=== PATIENT | male | born 1960 | race Caucasian/White ===

== ENCOUNTER 2024-07-22 03:08 | Inpatient (IN) | payer MEDICARE, MEDICAID ==
[~2024-07-22] VITALS: Ht 175.3 cm; Wt 51.9 kg
[2024-07-22] VITALS (10 sets, daily range): BP systolic 115–138; BP diastolic 83–96; PULSE 88–110; RESP 15–24; TEMP 97–97.9; O2SAT 95–100
[~2024-07-22 03:08] MED LIST: ASPI-611 PO; CARV6.253 PO; CLOP-32 PO; FURO20TA4 PO; LISI10TA27 PO; NICO-631 TD; SPIR25TA PO
[2024-07-22] MEDS: methylPREDNISolone sod succ 125mg/2ml vial IV ONE (03:41)
[2024-07-22] MEDS: ipratropium/albuterol 3ml nebule NEB ONE ×2 (03:48→07:11)
[2024-07-22 03:55] LABS: BASOPHILS % (AUTO) 0.5 % (0-1); EOSINOPHILS # (AUTO) 0.1 X10'3 (0-0.9); EOSINOPHILS % (AUTO) 1.6 % (0-6); HEMATOCRIT 37.5 % (42.0-52.0); HEMOGLOBIN 12.3 g/dl (14.0-17.9); LYMPHOCYTES # (AUTO) 0.8 X10'3 (1.1-4.8); LYMPHOCYTES % (AUTO) 11.3 % (21-51); MEAN CORPUSCULAR HEMOGLOBIN 29.7 PG (27.0-31.0); MEAN CORPUSCULAR HGB CONC 32.8 g/dL (33.0-36.5); MEAN CORPUSCULAR VOLUME 90.5 FL (78-98); MEAN PLATELET VOLUME 8.2 FL (7.4-10.4); MONOCYTES # (AUTO) 0.5 X10'3 (0-0.9); MONOCYTES % (AUTO) 6.5 % (2-12); NEUTROPHILS # (AUTO) 5.6 X10'3 (1.8-7.7); NEUTROPHILS % (AUTO) 80.1 % (42-75); PLATELET COUNT 151 X10'3 (140-440); RED BLOOD COUNT 4.15 X10'6 (4.70-6.10); RED CELL DISTRIBUTION WIDTH 16.7 % (11.5-14.5)
[2024-07-22 04:08] LABS: ALBUMIN 3.4 G/DL (3.4-5.0); ANION GAP 10 (8-16); BLOOD UREA NITROGEN 22 MG/DL (7-18); BUN/CREATININE RATIO 22.2 (10.0-20.0); CALCIUM 8.7 MG/DL (8.5-10.1); CHLORIDE 108 MMOL/L (99-107); CREATININE 0.99 MG/DL (0.60-1.10); GLUCOSE 101 MG/DL (70-104); POTASSIUM 4.3 MMOL/L (3.5-5.1); SODIUM 143 MMOL/L (135-145); eCRCL 56 ML/MIN; eGFR 76 ML/MIN
[2024-07-22] MEDS: normal saline 1000ML IV soln IVB ONE (06:02)
[2024-07-22] MEDS ORDERED: acetaminophen 325mg tablet PO PRN (07:45)
[2024-07-22] MEDS ORDERED: magnesium hydroxide 30ml (MOM) UD suspension PO PRN (07:45)
[2024-07-22] MEDS ORDERED: potassium Cl 40MEQ/1/2NS 520ml 520 ML IV PRN ×2 (07:45→09:15)
[2024-07-22] MEDS ORDERED: magnesium sulf-water 2g/50mL 50 ML IV PRN ×2 (07:45→09:15)
[2024-07-22] MEDS ORDERED: ondansetron/PF 4mg/2ml inj IV PRN (07:45)
[2024-07-22] MEDS ORDERED: potassium Cl 20 mEq SR tablet PO PRN ×4 (07:45→09:15)
[2024-07-22] MEDS ORDERED: magnesium sulf-water 4G/100mL 100 ML IV PRN ×2 (07:45→09:15)
[2024-07-22] MEDS ORDERED: mag hydrox/Alum hydrox/simeth 30ml oral suspension PO PRN (07:45)
[2024-07-22] MEDS: enoxaparin 40mg/0.4ml syringe SUBCUT SCH (08:00)
[2024-07-22] MEDS: K and/or MAG REPLACEMENT MC SCH ×2 (08:00→20:00)
[2024-07-22] MEDS: CefTRIAXone 2gm/D5W 50ml BAG 50 ML IV ONE (08:06)
[2024-07-22] MEDS: azithromycin/NS 500mg/250ml 250 ML IV SCH (08:52)
[2024-07-22] MEDS: docusate sod 100mg capsule PO SCH (09:01)
[2024-07-22 09:03] LABS: MAGNESIUM 1.4 MG/DL (1.5-2.4); PHOSPHORUS 1.8 MG/DL (2.3-4.5); THYROID STIMULATING HORMONE 1.49 ulU/ml (0.34-4.50)
[2024-07-22] MEDS: furosemide 40mg/4ml inj IV SCH (09:03)
[2024-07-22 09:05] LABS: HEMOGLOBIN A1C 6.3 % (4.5-6.2)
[2024-07-22] MEDS ORDERED: sodium phosphate inj. 15 MMOL in dextrose 5%-water 250 ML IV PRN (09:15)
[2024-07-22] MEDS ORDERED: Neutra Phos packet PO PRN (09:15)
[2024-07-22] MEDS ORDERED: sodium phosphate inj. 30 MMOL in dextrose 5%-water 250 ML IV PRN (09:15)
[2024-07-22] MEDS: magnesium Cl slow-release 64mg tablet PO PRN (09:17)
[2024-07-22 14:34] LABS: BILIRUBIN,URINE NEGATIVE (Neg); CLARITY,URINE CLEAR (Clear); COLOR,URINE STRAW (Yellow); GLUCOSE, URINE 100 mg/dl (Neg); KETONES,URINE NEGATIVE (Neg); LEUKOCYTE ESTERASE ,URINE NEGATIVE (Neg); NITRITES, URINE NEGATIVE (Neg); OCCULT BLOOD,URINE NEGATIVE (Neg); PH,URINE 5.5 (4.8-8.0); PROTEIN,URINE NEGATIVE (Neg); UROBILINOGEN,URINE 0.2 E.U/dL (0.2-1.0)
[2024-07-22 14:37] LABS: UA COLLECTION TYPE CLN CATCH MIDSTREAM
[2024-07-22 14:41] LABS: URINE AMPHETAMINE SCREEN NEGATIVE (Neg); URINE BARBITUATE SCREEN NEGATIVE (Neg); URINE BENZODIAZEPINES SCREEN NEGATIVE (Neg); URINE CANNABINOID SCREEN NEGATIVE (Neg); URINE COCAINE SCREEN NEGATIVE (Neg); URINE METHADONE SCREEN NEGATIVE (Neg); URINE OPIATE SCREEN NEGATIVE (Neg); URINE PHENCYCLIDINE SCREEN NEGATIVE (Neg)
[2024-07-22] MEDS: normal saline 1000ml 1,000 ML IV ONE (16:24)
[2024-07-22] MEDS: ringers solution, lacted 1,000 ML IV ONE ×2 (16:54→18:45)
[2024-07-22] MEDS: carVEDilol 3.125mg tablet PO SCH (20:21)
[2024-07-23] VITALS (22 sets, daily range): BP systolic 113–169; BP diastolic 78–116; PULSE 94–135; RESP 16–30; TEMP 98–98.8; O2SAT 88–100
[2024-07-23] MEDS: guaiFENesin ER 600mg tablet PO ONE (01:42)
[2024-07-23] MEDS: albuterol 2.5 MG/3 ML nebule NEB PRN (04:29)
[2024-07-23 06:42] LABS: ABG BASE EXCESS -3.1 mmol/L (-2.0-3.0); ABG OXYGEN SATURATION 97.5 % (94.0-98.0); ABG PH (T) 7.341 (7.350-7.450); ABG PO2 (T) 98.3 mmHg (83.0-108.0); ALLEN'S TEST POSITIVE; FCOHb 0.7 % (0.5-1.5); FHHb 2.5 % (0.0-5.0); FLOW 6 L/min; FMetHb 0.3 % (0.0-1.5); FO2Hb 96.5 % (94.0-98.0); PATIENT TEMPERATURE 35.9
[2024-07-23] MEDS: ipratropium/albuterol 3ml nebule NEB PRN (06:44)
[2024-07-23] MEDS: furosemide 40mg/4ml inj IV ONE (07:02)
[2024-07-23 07:03] LABS: BASOPHILS # (AUTO) 0.1 X10'3 (0-0.2); BASOPHILS % (AUTO) 0.5 % (0-1); EOSINOPHILS # (AUTO) 0.1 X10'3 (0-0.9); EOSINOPHILS % (AUTO) 0.6 % (0-6); HEMATOCRIT 38.2 % (42.0-52.0); HEMOGLOBIN 12.2 g/dl (14.0-17.9); LYMPHOCYTES # (AUTO) 1.2 X10'3 (1.1-4.8); LYMPHOCYTES % (AUTO) 9.9 % (21-51); MEAN CORPUSCULAR HEMOGLOBIN 29.3 PG (27.0-31.0); MEAN CORPUSCULAR HGB CONC 31.9 g/dL (33.0-36.5); MEAN PLATELET VOLUME 8.6 FL (7.4-10.4); MONOCYTES # (AUTO) 0.5 X10'3 (0-0.9); MONOCYTES % (AUTO) 3.9 % (2-12); NEUTROPHILS # (AUTO) 10.4 X10'3 (1.8-7.7); NEUTROPHILS % (AUTO) 85.1 % (42-75); PLATELET COUNT 188 X10'3 (140-440); RED BLOOD COUNT 4.15 X10'6 (4.70-6.10); RED CELL DISTRIBUTION WIDTH 16.9 % (11.5-14.5); WHITE BLOOD COUNT 12.3 X10'3 (4.5-11.0)
[2024-07-23] MEDS: metoprolol tartrate 1mg/ml inj IV ONE (07:03)
[2024-07-23 07:07] LABS: ALANINE AMINOTRANSFERASE 100 U/L (12-78); ALBUMIN 3.6 G/DL (3.4-5.0); ALBUMIN/GLOBULIN RATIO 1.1 (1.1-1.5); ALKALINE PHOSPHATASE 83 IU/L (46-116); ANION GAP 14 (8-16); ASPARTATE AMINO TRANSFERASE 110 U/L (10-37); BILIRUBIN,TOTAL 0.8 MG/DL (0.1-1.0); BLOOD UREA NITROGEN 28 MG/DL (7-18); BUN/CREATININE RATIO 25.2 (10.0-20.0); CALCIUM 8.6 MG/DL (8.5-10.1); CHLORIDE 106 MMOL/L (99-107); CHOLESTEROL 133 MG/DL (0-200); CREATININE 1.11 MG/DL (0.60-1.10); GLUCOSE 138 MG/DL (70-104); HDL CHOLESTEROL 66 MG/DL (35-60); LDL CHOLESTEROL 51 MG/DL (50-100); MAGNESIUM 1.4 MG/DL (1.5-2.4); PHOSPHORUS 3.4 MG/DL (2.3-4.5); POTASSIUM 4.4 MMOL/L (3.5-5.1); SODIUM 144 MMOL/L (135-145); TOTAL CARBON DIOXIDE 24.4 MMOL/L (24-32); TOTAL PROTEIN 6.8 G/DL (6.4-8.2); TRIGLYCERIDES 55 MG/DL (20-135); eCRCL 50 ML/MIN; eGFR 66 ML/MIN
[2024-07-23 07:56] LABS: APTT 24 SECONDS (22-32); INR 1.1 INR; PROTHROMBIN TIME 11.5 SECONDS (9.0-12.0)
[2024-07-23] MEDS: carvedilol 6.25mg tablet PO SCH (08:22)
[2024-07-23] MEDS: magnesium Cl slow-release 64mg tablet PO PRN (10:19)
[2024-07-23] MEDS: furosemide 40mg/4ml inj IV SCH ×2 (10:55→21:28)
[2024-07-23] MEDS: LidoCAINE 2% Topical Jelly 11mL syringe (UROJET) TOP ONE (11:12)
[2024-07-23 12:09] LABS: ABG BASE EXCESS 0.7 mmol/L (-2.0-3.0); ABG HCO3 23.7 mmol/L (21.0-28.0); ABG OXYGEN SATURATION 98.4 % (94.0-98.0); ABG PCO2 (T) 33.4 mmHg (35.0-48.0); ABG PH (T) 7.469 (7.350-7.450); FCOHb 0.2 % (0.5-1.5); FHHb 1.6 % (0.0-5.0); FMetHb 0.3 % (0.0-1.5); FO2Hb 97.9 % (94.0-98.0); MODE MASK - BIPAP; PATIENT TEMPERATURE 37.1; RESPIRATORY RATE 8 b/min; TOTAL HEMOGLOBIN 12.9 G/dl (13.5-17.5)
[2024-07-23] MEDS ORDERED: aspirin 81mg, enteric-coated 1 TAB TABLET.DR PO ONE (13:00)
[2024-07-23] MEDS: aspirin 81mg, enteric-coated 1 TAB TABLET.DR PO ONE (13:40)
[2024-07-23] MEDS: EMPAGLIFLOZIN 10 MG TABLET PO SCH (13:40)
[2024-07-23] MEDS: atorvastatin 20mg tablet PO SCH (17:21)
[2024-07-23] MEDS: spironolactone 25 MG tablet PO SCH (17:22)
[2024-07-23] MEDS ORDERED: lisinopril 2.5mg tablet PO SCH (19:00)
[2024-07-23] MEDS: lisinopril 5mg tablet PO SCH (21:27)
[2024-07-23] MEDS: tamsulosin 0.4mg capsule PO SCH (21:27)
[2024-07-23] MEDS: CefTRIAXone/D5W-Rocephin 1gm 50 ML IV SCH (23:25)
[2024-07-23] MEDS: VANCOmycin 1250MG/NS 250ml Bag 250 ML IV ONE (23:49)
[2024-07-24] VITALS (13 sets, daily range): BP systolic 80–124; BP diastolic 49–86; PULSE 62–102; RESP 15–20; TEMP 97.3–99; O2SAT 92–99
[2024-07-24 06:22] LABS: EOSINOPHILS # (AUTO) 0.1 X10'3 (0-0.9); EOSINOPHILS % (AUTO) 1.4 % (0-6); HEMOGLOBIN 12.1 g/dl (14.0-17.9); LYMPHOCYTES # (AUTO) 0.7 X10'3 (1.1-4.8); MONOCYTES # (AUTO) 0.4 X10'3 (0-0.9); WHITE BLOOD COUNT 5.7 X10'3 (4.5-11.0)
[2024-07-24 06:27] LABS: BASOPHILS % (AUTO) 0.6 % (0-1); HEMATOCRIT 36.9 % (42.0-52.0); LYMPHOCYTES % (AUTO) 12.1 % (21-51); MEAN CORPUSCULAR HEMOGLOBIN 29.6 PG (27.0-31.0); MEAN CORPUSCULAR HGB CONC 32.9 g/dL (33.0-36.5); MEAN CORPUSCULAR VOLUME 89.9 FL (78-98); MEAN PLATELET VOLUME 8.7 FL (7.4-10.4); MONOCYTES % (AUTO) 7.4 % (2-12); NEUTROPHILS # (AUTO) 4.4 X10'3 (1.8-7.7); NEUTROPHILS % (AUTO) 78.5 % (42-75); PLATELET COUNT 135 X10'3 (140-440); RED BLOOD COUNT 4.11 X10'6 (4.70-6.10); RED CELL DISTRIBUTION WIDTH 17.1 % (11.5-14.5)
[2024-07-24 06:30] LABS: APTT 28 SECONDS (22-32); INR 1.1 INR; PROTHROMBIN TIME 11.8 SECONDS (9.0-12.0)
[2024-07-24 06:31] LABS: ALANINE AMINOTRANSFERASE 58 U/L (12-78); ALBUMIN 3.2 G/DL (3.4-5.0); ALKALINE PHOSPHATASE 68 IU/L (46-116); ANION GAP 6 (8-16); ASPARTATE AMINO TRANSFERASE 44 U/L (10-37); BILIRUBIN,TOTAL 0.8 MG/DL (0.1-1.0); BLOOD UREA NITROGEN 35 MG/DL (7-18); BUN/CREATININE RATIO 30.4 (10.0-20.0); CALCIUM 7.8 MG/DL (8.5-10.1); CHLORIDE 102 MMOL/L (99-107); CREATININE 1.15 MG/DL (0.60-1.10); GLUCOSE 88 MG/DL (70-104); MAGNESIUM 1.6 MG/DL (1.5-2.4); PHOSPHORUS 3.5 MG/DL (2.3-4.5); POTASSIUM 3.7 MMOL/L (3.5-5.1); SODIUM 142 MMOL/L (135-145); TOTAL CARBON DIOXIDE 33.7 MMOL/L (24-32); TOTAL PROTEIN 6.3 G/DL (6.4-8.2); eCRCL 47 ML/MIN; eGFR 64 ML/MIN
[2024-07-24] MEDS: LORazepam 0.5 MG tablet PO ONE (20:04)
[2024-07-24] MEDS: normal saline 1000ml 1,000 ML IV SCH (22:00)
[2024-07-24] MEDS: vancomycin/NS 1 GM ADD-VANTAGE 250 ML IV SCH (23:28)
[2024-07-25] VITALS (12 sets, daily range): BP systolic 79–108; BP diastolic 54–75; PULSE 67–98; RESP 16–20; TEMP 97.7–98.4; O2SAT 91–98
[2024-07-25 06:02] LABS: BASOPHILS # (AUTO) 0.1 X10'3 (0-0.2); BASOPHILS % (AUTO) 1.9 % (0-1); EOSINOPHILS # (AUTO) 0.2 X10'3 (0-0.9); EOSINOPHILS % (AUTO) 4.1 % (0-6); HEMATOCRIT 35.2 % (42.0-52.0); HEMOGLOBIN 11.6 g/dl (14.0-17.9); LYMPHOCYTES # (AUTO) 0.8 X10'3 (1.1-4.8); LYMPHOCYTES % (AUTO) 19.6 % (21-51); MEAN CORPUSCULAR HEMOGLOBIN 29.4 PG (27.0-31.0); MEAN CORPUSCULAR VOLUME 89.1 FL (78-98); MEAN PLATELET VOLUME 8.4 FL (7.4-10.4); MONOCYTES # (AUTO) 0.5 X10'3 (0-0.9); NEUTROPHILS # (AUTO) 2.7 X10'3 (1.8-7.7); NEUTROPHILS % (AUTO) 63.4 % (42-75); PLATELET COUNT 165 X10'3 (140-440); RED BLOOD COUNT 3.95 X10'6 (4.70-6.10); RED CELL DISTRIBUTION WIDTH 16.3 % (11.5-14.5); WHITE BLOOD COUNT 4.3 X10'3 (4.5-11.0)
[2024-07-25 06:05] LABS: APTT 26 SECONDS (22-32); INR 1.1 INR; PROTHROMBIN TIME 11.2 SECONDS (9.0-12.0)
[2024-07-25 06:18] LABS: ALANINE AMINOTRANSFERASE 43 U/L (12-78); ALBUMIN 2.9 G/DL (3.4-5.0); ALBUMIN/GLOBULIN RATIO 0.9 (1.1-1.5); ALKALINE PHOSPHATASE 60 IU/L (46-116); ANION GAP 5 (8-16); ASPARTATE AMINO TRANSFERASE 27 U/L (10-37); BILIRUBIN,TOTAL 0.9 MG/DL (0.1-1.0); BLOOD UREA NITROGEN 37 MG/DL (7-18); BUN/CREATININE RATIO 33.6 (10.0-20.0); CALCIUM 8.3 MG/DL (8.5-10.1); CHLORIDE 101 MMOL/L (99-107); GLUCOSE 96 MG/DL (70-104); MAGNESIUM 1.6 MG/DL (1.5-2.4); PHOSPHORUS 3.6 MG/DL (2.3-4.5); POTASSIUM 3.7 MMOL/L (3.5-5.1); SODIUM 138 MMOL/L (135-145); TOTAL CARBON DIOXIDE 32.5 MMOL/L (24-32); eCRCL 49 ML/MIN; eGFR 67 ML/MIN
[2024-07-25] MEDS: LORazepam 0.5 MG tablet PO ONE (17:29)
[2024-07-26 02:00] VITALS: BP 111/73; PULSE 74; RESP 17; TEMP 98.3; O2SAT 97
[2024-07-26 06:55] LABS: BASOPHILS # (AUTO) 0.1 X10'3 (0-0.2); EOSINOPHILS # (AUTO) 0.2 X10'3 (0-0.9); EOSINOPHILS % (AUTO) 5.1 % (0-6); HEMATOCRIT 34.9 % (42.0-52.0); HEMOGLOBIN 11.5 g/dl (14.0-17.9); LYMPHOCYTES # (AUTO) 0.9 X10'3 (1.1-4.8); LYMPHOCYTES % (AUTO) 21.1 % (21-51); MEAN CORPUSCULAR HGB CONC 32.9 g/dL (33.0-36.5); MEAN CORPUSCULAR VOLUME 88.3 FL (78-98); MEAN PLATELET VOLUME 8.5 FL (7.4-10.4); MONOCYTES # (AUTO) 0.5 X10'3 (0-0.9); MONOCYTES % (AUTO) 11.4 % (2-12); NEUTROPHILS # (AUTO) 2.6 X10'3 (1.8-7.7); NEUTROPHILS % (AUTO) 60.4 % (42-75); PLATELET COUNT 184 X10'3 (140-440); RED BLOOD COUNT 3.95 X10'6 (4.70-6.10); WHITE BLOOD COUNT 4.2 X10'3 (4.5-11.0)
[2024-07-26 07:00] VITALS: BP 118/69; PULSE 86; RESP 22; TEMP 97.4; O2SAT 94
[2024-07-26 07:04] LABS: INR 1.1 INR; PROTHROMBIN TIME 11.2 SECONDS (9.0-12.0)
[2024-07-26 07:19] LABS: ALANINE AMINOTRANSFERASE 33 U/L (12-78); ALBUMIN 2.8 G/DL (3.4-5.0); ALBUMIN/GLOBULIN RATIO 0.9 (1.1-1.5); ALKALINE PHOSPHATASE 60 IU/L (46-116); ANION GAP 5 (8-16); ASPARTATE AMINO TRANSFERASE 23 U/L (10-37); BILIRUBIN,TOTAL 0.7 MG/DL (0.1-1.0); BLOOD UREA NITROGEN 39 MG/DL (7-18); BUN/CREATININE RATIO 39.4 (10.0-20.0); CALCIUM 8.3 MG/DL (8.5-10.1); CHLORIDE 101 MMOL/L (99-107); CREATININE 0.99 MG/DL (0.60-1.10); GLUCOSE 89 MG/DL (70-104); MAGNESIUM 1.6 MG/DL (1.5-2.4); PHOSPHORUS 3.2 MG/DL (2.3-4.5); POTASSIUM 3.9 MMOL/L (3.5-5.1); SODIUM 136 MMOL/L (135-145); TOTAL CARBON DIOXIDE 29.8 MMOL/L (24-32); TOTAL PROTEIN 5.9 G/DL (6.4-8.2); eCRCL 55 ML/MIN; eGFR 76 ML/MIN
[2024-07-26] MEDS ORDERED: ATOR20TA66 PO (07:49)
[2024-07-26] MEDS ORDERED: EMPA10TA PO (07:49)
[2024-07-26] MEDS ORDERED: SPIR25TA5 PO (07:49)
[2024-07-26] MEDS ORDERED: SACU1TAB PO (07:49)
[2024-07-26] MEDS ORDERED: LISI10TA27 PO (07:49)
[2024-07-26] MEDS ORDERED: ATOR10TA70 PO (07:49)
[2024-07-26] MEDS ORDERED: FURO20TA4 PO (07:49)
[2024-07-26 08:00] VITALS: BP_SYST 105; BP_SYST 110; BP_SYST 118; BP_DIAS 65; BP_DIAS 69; BP_DIAS 70; PULSE 80; PULSE 83; PULSE 86; RESP 18; O2SAT 93
[2024-07-26 09:33] VITALS: PULSE 72; RESP 20; O2SAT 94
[2024-07-26 11:00] VITALS: BP 92/54; PULSE 75; RESP 20; TEMP 98.1; O2SAT 97
[2024-07-26] MEDS ORDERED: VANCOMYCIN LEVEL IV ONE (23:30)
== END 2024-07-26 16:21 | disposition home or self-care (01) | DRG 291 ==
LOC: ER 03:09 → EDBD 03:09 → ED HOLD 08:07 → ORTHO 4S 12:30 → PCU 3S 07-23 20:17
PROVIDERS: ADMIT Internal Medicine; ATTEND Internal Medicine
PROC: 5A09357 Assistance with Respiratory Ventilation, Less than 24 Consecutive Hours, Continuous Positive Airway Pressure (ICD-10-PCS; 2024-07-23)
PROC: 4B02XTZ Measurement of Cardiac Defibrillator, External Approach (ICD-10-PCS; principal; 2024-07-25)
DX: I11.0 Hypertensive heart disease with heart failure (principal); I50.23 Acute on chronic systolic (congestive) heart failure; J96.01 Acute respiratory failure with hypoxia; J44.1 Chronic obstructive pulmonary disease with (acute) exacerbation; N17.9 Acute kidney failure, unspecified; Z20.822 Contact with and (suspected) exposure to COVID-19; Z66 Do not resuscitate; I95.9 Hypotension, unspecified; R33.8 Other retention of urine; E83.39 Other disorders of phosphorus metabolism; N40.1 Benign prostatic hyperplasia with lower urinary tract symptoms; E83.42 Hypomagnesemia; F17.210 Nicotine dependence, cigarettes, uncomplicated; Z88.5 Allergy status to narcotic agent; Z95.810 Presence of automatic (implantable) cardiac defibrillator; Z88.0 Allergy status to penicillin
CPT/HCPCS: 36415; 36600; 71045; 80048; 80053; 80061; 80305; 81003; 82803; 83036; 83605; 83735; 83880; 84100; 84145; 84443; 84484; 85018; 85025; 85610; 85730; 87040; 87077; 87081; 87186; 87811; 93005; 93306; 94640; 94660; 94760; 96365; 97161; 97530; 97535; 99291; A4314; A4340; A4615; A4620; A6590; G0378; J0456; J0696; J1650; J1940; J2919; J3370; J3490; J7030; J7040; J7120

== ENCOUNTER 2025-03-23 02:46 | Inpatient (IN) | payer MEDICARE, MEDICAID ==
[~2025-03-23] VITALS: Ht 175.3 cm; Wt 57.0 kg
[2025-03-23] VITALS (9 sets, daily range): BP systolic 115–117; BP diastolic 68–79; PULSE 108–116; RESP 18–24; TEMP 97.6–97.7; O2SAT 93–100
[~2025-03-23 02:46] MED LIST changes: +ALB0.5UD IH; -ASPI-611 PO; +ATOR20TA66 PO; +BUDE10.22 INH; +CYCL-1 PO; +EMPA10TA PO; -LISI10TA27 PO; +LISI2.5T14 PO; -NICO-631 TD; +PANT-47 PO; +PRED5TAB PO
--- NOTE | 2025-03-23 03:46 | Physician Documentation ---
History of Present Illness ~ Chief Complaint: Shortness of Breath Stated Complaint: SOB Time Seen by MD: 03:46 Mode of Arrival: EMS HPI 64-year-old male history of HFrEF EF 10% presenting for shortness of breath. Medication Reconciliation Allergies: Coded Allergies: Penicillins (Verified Allergy, Unknown, PATIENT CANNOT REMEMBER, IT WAS LONG AGO., 03/23/25) codeine (Verified Allergy, Unknown, 03/23/25) Scheduled Atorvastatin Calcium (Atorvastatin Calcium), 1 TAB PO DAILY, (Reported) Budesonide/Formoterol Fumarate (Symbicort 80-4.5 Mcg Inhaler), 2 PUFFS INH Q12H Carvedilol (Carvedilol), 6.25 MG PO BID Clopidogrel Bisulfate (Plavix), 75 MG PO DAILY Empagliflozin (Jardiance), 1 TAB PO DAILY Furosemide (Furosemide), 1 TAB PO DAILY Lisinopril (Lisinopril), 1 TAB PO DAILY Pantoprazole Sodium (PROTONIX tablet), 1 TAB PO DAILY Prednisone* (Prednisone*), 1 TAB PO DAILY, (Reported) Prednisone* (Prednisone*), 3 TAB PO DAILY Spironolactone (Aldactone), 25 MG PO DAILY@0830 Scheduled PRN Albuterol Sulfate Nebs* (Proventil Nebs*), 2.5 MG IH Q4H PRN for SOB or wheezing, (Reported) Cyclobenzaprine* (Cyclobenzaprine*), 10 MG PO Q12H PRN for muscle spasms Past Medical History Past Medical History: Coronary Artery Disease, Myocardial Infarction, COPD Past Surgical History: noncontributory Lives In: Home Review of Systems All Other Systems at this time: Reviewed and Negative Constitutional: Reports: fever Physical Exam Vital Signs: Temperature: 97.1, Source: Axillary, Heart Rate: 105, Respiratory Rate: 25, BP: 124/72, Pulse Oximetry: 98, Weight: 57.000 Oxygen Flow Rate: 3.0 Physical Exam Chronically ill-appearing Quickly bibasilar crackles you know abdomen soft nontender No lower extremity no edema Progress Progress Note Reassess patient he is feeling much better requesting food and discharge Results/Orders Results/Orders Orders - NABIL SCHOFIELD MD Chest,Single View (03/23/25 03:20) Monitor (03/23/25 04:10) Hs Troponin I W Calculations (03/23/25 06:10) Completed Orders - NABIL SCHOFIELD MD Chest,Single View (03/23/25 03:20) Cbc/Diff (03/23/25 04:10) PBNP (03/23/25 04:10) BMP (03/23/25 04:10) Hs Troponin I W Calculations (03/23/25 04:10) Ipratropium/Albuterol Nebule (Ipratrop/A (03/23/25 04:10) Electrocardiogram (03/23/25 ) Prednisone Tablet (Prednisone Tablet) (03/23/25 06:40) Medications Received in ER Medications (Trade) Dose Ordered Sig/Dot Route PRN Reason Start Time Stop Time Status Last Admin Dose Admin (ipratrop/ albuterol 0.5-3(2.5) MG/3ml nebule) 9 ml ONCE ONCE NEB 03/23/25 04:10 03/23/25 04:14 DC 03/23/25 04:40 9 ML Vital Signs 03/23/25 03/23/25 03/23/25 03/23/25 02:47 03:13 03:31 03:53 Temp 97.1 Pulse 105 111 Resp 20 25 28 B/P (MAP) 124/72 Pulse Ox 95 98 97 O2 Delivery Nasal Cannula* O2 Flow Rate 3.0 2 3.0 FiO2 28 03/23/25 03/23/25 03/23/25 03/23/25 04:07 04:41 04:52 05:31 Pulse 113 114 116 114 Resp 20 18 18 14 B/P (MAP) 109/78 (88) Pulse Ox 96 100 100 O2 Delivery Nasal Cannula* Nasal Cannula* O2 Flow Rate 3.0 2 2 FiO2 28 28 Laboratory Tests Test 03/23/25 05:12 White Blood Count 7.4 Red Blood Count 4.11 L Hemoglobin 9.9 L Hematocrit 31.3 L Mean Corpuscular Volume 76.0 L Mean Corpuscular Hemoglobin 24.2 L Mean Corpuscular Hemoglobin Concent 31.8 L Red Cell Distribution Width 19.0 H Platelet Count 270 Mean Platelet Volume 8.1 Neutrophils (%) (Auto) 70.9 Lymphocytes (%) (Auto) 11.0 L Monocytes (%) (Auto) 14.8 H Eosinophils (%) (Auto) 1.6 Basophils (%) (Auto) 1.7 H Neutrophils # (Auto) 5.2 Lymphocytes # (Auto) 0.8 L Monocytes # (Auto) 1.1 H Eosinophils # (Auto) 0.1 Basophils # (Auto) 0.1 CBC Comment Platelet Estimate Normal Red Blood Cell Morphology Perf Basophilic Stippling Anisocytosis 1+ Microcytosis 1+ Sodium Level 137 Potassium Level 4.9 Chloride Level 101 Carbon Dioxide Level 24.4 Anion Gap 12 Blood Urea Nitrogen 40 H Creatinine 1.71 H Estimated GFR/1.73 m2 40 BUN/Creatinine Ratio 23.4 H Glucose Level 122 H Calcium Level 8.9 Troponin I High Sensitivity 69 Pro-B-Type Natriuretic Peptide > 18800 H Albumin 3.2 L Chemistry Comments EKG/XRAY/CT/US/VASC/MRI EKG : Additional Comment EKG independently interpreted by myself time 2:53 a.m. indication shortness of breath ventricular paced rhythm rate 107 left axis deviation no concordant ST depression or elevation Chest X-Ray : Additional Comments X-ray independently interpreted shows left lower lobe infiltrate no pneumothorax no consolidation Medical Decision Making Additional info obtained from: old records Findings Reviewed discharge summary March 09, 2025 see HFrEF 10%, methamphetamine induced cardiomyopathy, COPD Entresto discontinued Additional Infomation COPD, pneumonia, asthma, CHF, Departure Disposition: ADMITTED INPATIENT Admitted to Inpatient Unit: to hospitalist Impression: Primary Impression: Acute on chronic systolic (congestive) heart failure Additional Impressions: Pneumonia Qualified Codes: J18.9 - Pneumonia, unspecified organism JUAN (acute kidney injury) Additional Impression Text 64-year-old male presenting for shortness of breath and cough found to have worsening of his systolic heart failure, JUAN and potential pneumonia Additional Instructions: Please follow up with your primary care physician. Return to the emergency depa rtment if your symptoms worsen Referrals: NO PRIMARY CARE PROVIDER (PCP) Prescriptions Prednisone* (Prednisone*) 20 Mg Tablet 3 TAB PO DAILY for 5 Days, #15 TAB Prov: NABIL SCHOFIELD MD 03/23/25 Signature Scribe Signature: ivon Attestation: NABIL Echols MD March 23, 2025 03:46
--- NOTE | 2025-03-23 03:53 | RADIOLOGY REPORT ---
CHEST RADIOGRAPH Indication: sob Technique: Single frontal view of the chest was obtained COMPARISON: DI CHEST,SINGLE VIEW on DOS: 03/09/25, DI CHEST,SINGLE VIEW on DOS: 07/23/24, DI CHEST,SINGL E VIEW on DOS: 07/22/24 FINDINGS: Lines and Tubes: Left anterior chest wall cardiac pacing device. Lungs: Left basilar airspace disease and/or pleural effusion not excluded. The remaining lung zones a re clear. No pneumothorax. Cardiomediastinal contours: Cardiomegaly. Bones: Unremarkable IMPRESSION: 1. Left basilar pulmonary airspace disease and/or pleural effusion not excluded. 2. Cardiomegaly.
[2025-03-23] MEDS: ipratropium/albuterol 3ml nebule NEB ONE (04:40)
[2025-03-23 05:31] LABS: BASOPHILS # (AUTO) 0.1 X10'3 (0-0.2); BASOPHILS % (AUTO) 1.7 % (0-1); EOSINOPHILS # (AUTO) 0.1 X10'3 (0-0.9); EOSINOPHILS % (AUTO) 1.6 % (0-6); HEMATOCRIT 31.3 % (42.0-52.0); HEMOGLOBIN 9.9 g/dl (14.0-17.9); LYMPHOCYTES # (AUTO) 0.8 X10'3 (1.1-4.8); MEAN CORPUSCULAR HEMOGLOBIN 24.2 PG (27.0-31.0); MEAN CORPUSCULAR HGB CONC 31.8 g/dL (33.0-36.5); MEAN PLATELET VOLUME 8.1 FL (7.4-10.4); MONOCYTES # (AUTO) 1.1 X10'3 (0-0.9); MONOCYTES % (AUTO) 14.8 % (2-12); NEUTROPHILS # (AUTO) 5.2 X10'3 (1.8-7.7); NEUTROPHILS % (AUTO) 70.9 % (42-75); PLATELET COUNT 270 X10'3 (140-440); RED BLOOD COUNT 4.11 X10'6 (4.70-6.10); WHITE BLOOD COUNT 7.4 X10'3 (4.5-11.0)
[2025-03-23 05:47] LABS: ALBUMIN 3.2 G/DL (3.4-5.0); ANION GAP 12 (8-16); BLOOD UREA NITROGEN 40 MG/DL (7-18); BUN/CREATININE RATIO 23.4 (10.0-20.0); CALCIUM 8.9 MG/DL (8.5-10.1); CHLORIDE 101 MMOL/L (99-107); CREATININE 1.71 MG/DL (0.60-1.10); GLUCOSE 122 MG/DL (70-104); POTASSIUM 4.9 MMOL/L (3.5-5.1); SODIUM 137 MMOL/L (135-145); TOTAL CARBON DIOXIDE 24.4 MMOL/L (24-32); eCRCL 34 ML/MIN; eGFR 40 ML/MIN
[2025-03-23 05:48] LABS: PRO BRAIN NATRIURETIC PEPTIDE > 30000 PG/ML (0-125)
[2025-03-23 05:50] LABS: ANISOCYTOSIS 1+; PLATELET ESTIMATE NORMAL
[2025-03-23 05:51] LABS: MICROCYTOSIS 1+
--- NOTE | 2025-03-23 06:27 | ELECTROCARDIOGRAPH REPORT ---
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
[2025-03-23] MEDS ORDERED: PRED20TA PO (06:40)
[2025-03-23] MEDS: predniSONE 20 mg tablet PO ONE (07:07)
[2025-03-23] MEDS: CefTRIAXone 2gm/D5W 50ml BAG 50 ML IV ONE (07:07)
[2025-03-23] MEDS: furosemide 40mg/4ml inj IV ONE (07:07)
[2025-03-23] MEDS ORDERED: mag hydrox/Alum hydrox/simeth 30ml oral suspension PO PRN (08:15)
[2025-03-23] MEDS ORDERED: ondansetron/PF 4mg/2ml inj IV PRN (08:15)
[2025-03-23] MEDS ORDERED: potassium Cl 40MEQ/1/2NS 520ml 520 ML IV PRN (08:15)
[2025-03-23] MEDS: normal saline 1000ml 1,000 ML IV SCH (08:15)
[2025-03-23] MEDS ORDERED: magnesium sulf-water 4G/100mL 100 ML IV PRN (08:15)
[2025-03-23] MEDS ORDERED: ondansetron 4mg rapidly disintigrating tab PO PRN (08:15)
[2025-03-23] MEDS ORDERED: bisacodyl 10mg suppository rectal RC PRN (08:15)
[2025-03-23] MEDS ORDERED: acetaminophen 650mg rectal suppository RC PRN (08:15)
[2025-03-23] MEDS ORDERED: acetaminophen 325mg tablet PO PRN ×2 (08:15)
[2025-03-23] MEDS ORDERED: magnesium sulf-water 2g/50mL 50 ML IV PRN (08:15)
[2025-03-23] MEDS ORDERED: morphine 2 MG/ML inj. syringe IV PRN (08:15)
[2025-03-23] MEDS ORDERED: magnesium Cl slow-release 64mg tablet PO PRN (08:15)
[2025-03-23] MEDS ORDERED: magnesium hydroxide 30ml (MOM) UD suspension PO PRN (08:15)
[2025-03-23] MEDS ORDERED: potassium Cl 20 mEq SR tablet PO PRN ×2 (08:15)
[2025-03-23 08:40] LABS: APTT 27 SECONDS (22-32); INR 1.3 INR
[2025-03-23 08:44] LABS: MAGNESIUM 2.1 MG/DL (1.5-2.4); PHOSPHORUS 4.7 MG/DL (2.3-4.5)
[2025-03-23 08:51] LABS: BILIRUBIN,URINE NEGATIVE (Neg); CLARITY,URINE CLEAR (Clear); COLOR,URINE YELLOW (Yellow); GLUCOSE, URINE NEGATIVE (Neg); KETONES,URINE NEGATIVE (Neg); LEUKOCYTE ESTERASE ,URINE NEGATIVE (Neg); NITRITES, URINE NEGATIVE (Neg); OCCULT BLOOD,URINE NEGATIVE (Neg); PROTEIN,URINE NEGATIVE (Neg); UA COLLECTION TYPE URINAL; UROBILINOGEN,URINE 0.2 E.U/dL (0.2-1.0)
[2025-03-23 08:53] LABS: HEMOGLOBIN A1C 6.3 % (4.5-6.2)
[2025-03-23 09:05] LABS: URINE AMPHETAMINE SCREEN NEGATIVE (Neg); URINE BARBITUATE SCREEN NEGATIVE (Neg); URINE BENZODIAZEPINES SCREEN NEGATIVE (Neg); URINE CANNABINOID SCREEN NEGATIVE (Neg); URINE COCAINE SCREEN NEGATIVE (Neg); URINE METHADONE SCREEN NEGATIVE (Neg); URINE OPIATE SCREEN POSITIVE (Neg); URINE PHENCYCLIDINE SCREEN NEGATIVE (Neg)
[2025-03-23] MEDS: ipratropium/albuterol 3ml nebule NEB PRN (09:28)
--- NOTE | 2025-03-23 10:40 | RADIOLOGY REPORT ---
CLINICAL INFORMATION: 64 years old, Male; opacities. TECHNIQUE: Axial CT imaging of the chest was performed without IV contrast. Sagittal and coronal refo rmatted images were made, stored and reviewed. Evaluation is limited without IV contrast. One or more of the following dose reduction techniques were used: Automated exposure control. Adjustment of mA a nd/or kV according to patient size. CTDIvol = 9.45 mGy DLP = 369.18 mGy-cm COMPARISON: Radiographs dated 03/23/2025. FINDINGS: Aorta: Mild atherosclerotic calcification. No thoracic aortic aneurysm. Cardiac: Moderate to marked cardiomegaly. Moderate coronary artery calcification. Pacemaker leads ext end to the right atrium and right ventricle. Mediastinum/kim: No mass or adenopathy. Lungs: Severe emphysematous changes. Small left pleural effusion with overlying atelectasis consolida tion. Dependent atelectasis in the right lower lobe. Additional scattered subsegmental areas of atele ctasis. Respiratory motion artifact limits evaluation. Beam hardening artifact from the left chest wa ll pacemaker device also limits evaluation. Pulmonary arteries: Mildly dilated main pulmonary artery measuring up to 3.2 cm in diameter, may be s een with pulmonary arterial hypertension. Chest wall: No mass or other abnormality. Upper abdomen: Small cyst in the right hepatic lobe. Motion artifact limits evaluation. Bones: No fracture or suspicious intraosseous lesions. IMPRESSION: 1. Small left pleural effusion with overlying atelectasis and consolidation in the left lower lobe. 2. Severe emphysematous changes. 3. Findings suggesting a degree of pulmonary arterial hypertension in the appropriate clinical settin g. 4. Moderate to marked cardiomegaly.Additional 5. Findings as detailed above. 6. Motion limited study. Beam hardening artifact from the left chest wall pacemaker device also limit s evaluation.
--- NOTE | 2025-03-23 15:01 | HISTORY AND PHYSICAL ---
History & Physical Providers to CC Chief complaint, shortness of breath ~ History of Present Illness Reason for Admit\Complaint: As above History of Present Illness Patient is a 64-year-old male with a history of CHFrEF (S/P pacemaker/defibrillator) and COPD, history of coronary artery disease ME, systolic CHF ejection fraction 10% associated with pulmonary hypertension March 10, 2025, anemia hemoglobin 9.9, chronic kidney disease, hypoalbuminemia, history of polysubstance abuse methamphetamine marijuana, fentanyl history of heavy smoking, and chronic alcoholism sober now, history of hepatic steatosis, presents to ER with concerns of progressively worsening shortness of breaths for the past two weeks, which coincides with running out of his prescribed medication including Lasix, Entresto, and carvedilol.. Patient is a poor historian, provides fragmented history.Patient reports difficulty breathing on exertion, he denies any orthopnea or PND. He has also noticed bilateral lower extremity swelling. Patient also states having vague, poorly localized chest pain with no exacerbation or relieving factors. He admits using methamphetamine, last used three days ago. Emergency department he was evaluated by physician, was diagnosed with systolic CHF in exacerbation, hypoxia, tachyarrhythmia, and decision was made to admit patient for further evaluation and treatment. No additional complaint or concern. Allergies: Coded Allergies: Penicillins (Verified Allergy, Unknown, PATIENT CANNOT REMEMBER, IT WAS LONG AGO., 03/23/25) TOLERATE ROCEPHIN 07/2024 AND ANCEF 07/2021 codeine (Verified Allergy, Unknown, 03/23/25) PT TOLERATE NORCO 01/2018, HYDROMORPHONE 02/2015, AND MORPHINE 02/2025 Active prescriptions I reviewed reconciled Home Medications Home Medications Active Prednisone* (Prednisone) 20 Mg Tablet 3 Tab PO DAILY 5 Days PROTONIX tablet (Pantoprazole Sodium) 40 Mg Tablet.dr 1 Tab PO DAILY 30 Days Symbicort 80-4.5 Mcg Inhaler (Budesonide/Formoterol Fumarate) 80 Mcg-4.5 Mcg/Actuation Hfa.aer.ad 2 Puffs INH Q12H 30 Days Lisinopril 2.5 Mg Tablet 1 Tab PO DAILY 30 Days Cyclobenzaprine* (Cyclobenzaprine HCl) 10 Mg Tablet 10 Mg PO Q12H PRN 5 Days Jardiance (Empagliflozin) 10 Mg Tablet 1 Tab PO DAILY 30 Days Plavix (Clopidogrel Bisulfate) 75 Mg Tablet 75 Mg PO DAILY 30 Days Do not stop medication unless instructed by prescriber. Carvedilol 6.25 Mg Tablet 6.25 Mg PO BID 30 Days Furosemide 20 Mg Tablet 1 Tab PO DAILY 30 Days Aldactone (Spironolactone) 25 Mg Tablet 25 Mg PO DAILY@0830 30 Days Reported Proventil Nebs* (Albuterol) 2.5 Mg/0.5 Ml Vial.neb 2.5 Mg IH Q4H PRN Atorvastatin Calcium 20 Mg Tablet 1 Tab PO DAILY Past Medical History Past Medical History As in HPI Past Surgical History Surgical History Comment As in HPI Family History Family History: Family history was reviewed; no changes noted. Past Social History Social History Comment Deny illicit drug abuse tobacco alcohol use now, live with the family good social support Health Maintenance Health Maintenance Noncontributory ROS ROS Constitutional : no fever , no chills, or weakness. No diaphoresis. Allergic/Immunologic, no lymphadenopathy, no hives, no skin eruptions. Eyes, no recent visual changes, no eye pain, no photophobia. Ears, nose, mouth, throat, no sore throat, no nosebleed, no ear pain. Cardiovascular, no palpitations, skipped beats, chest pain, no peripheral edema, Respiratory, positive for dyspnea, orthopnea, cough, no hemoptysis, chest wall pain. Gastrointestinal, no abdominal pain, nausea, vomiting, constipation or diarrhea. : no dysuria, hematuria, pelvic pain, urethral d/c. Endocrine, no polyuria, polydipsia, recent unintentional weight gain or loss. Hematologic/Lymphatic, no petechiae, no enlarged lymph nodes, no bone pain. Integumentary, no rash, no skin lesions, Musculoskeletal, no muscle aches, or pain, no muscle cramps, no recent change in gait Neurological, no dizziness, no headache, no syncope, no paresthesia. Psychiatric, no delusions, visual hallucinations, or hearing hallucinations. ROS - in rest is as in HPI. Exam Vitals: Vital Signs Date Time Temp Pulse Resp B/P (MAP) Pulse Ox O2 Delivery O2 Flow Rate FiO2 03/23/25 14:28 113 19 126/95 (105) 96 2.0 28 03/23/25 10:43 97.1 03/23/25 09:37 Nasal Cannula Vital signs, stable ,afebrile. Tachycardic, Pulse Oximetry reflects adequate oxygenation on 2 L oxygen nasal cannula. BMI is 18, weight 57 kg General: well developed, well nourished. Awake , alert, and oriented x4, resting comfortably in the bed, in no acute distress . Skin: Warm, dry, no pallor, no rash or petechiae. HEENT: Atraumatic, normocephalic, EOMI, anicteric sclera B; pink conjunctiva; PERRLA, normal oropharynx, moist oral and nasal mucosa. Tympanic membrane , nose , throat clear. Neck: Trachea midline. Supple, full range of motion, no JVD, bruit , hepatojugular reflex , lymphadenopathy or masses, or other lesions Cardiac: Regular rhythm, regular rate no murmurs, rubs, or gallops. Normal S1 and S2, no S3 noticed. PMI is normal. Respiratory: Equal breath sounds bilaterally, no tachypnea; lungs clear to auscultation bilaterally, no wheezing ,rub or rales, or crackles. Chest wall is symmetric and without deformity. No signs of trauma. Chest wall is nontender. No signs of respiratory distress. Resonance is normal upon percussion bilaterally. Gastrointestinal: Abdomen symmetric, non-distended, soft, non-tender, normal bowel sounds x4 quadrant, normoactive, no hepatosplenomegaly , no masses , no bruit, no flank pain bilaterally. No voluntary guarding, rebound, or rigidity. No tenderness to percussion. No pulsatile masses. Equal femoral pulses. No Mcneil's sign or McBurney point tenderness. Back; no CVA tenderness bilaterally, no deformities. Neck and back are without deformity as well. No tenderness noted on palpation of the spinous processes. Spinous processes are midline. Cervical, thoracic, and lumbar paraspinal muscles are not tender and are without spasm. : normal external genitalia, without lesions, swelling, masses or tenderness. Musculoskeletal: Extremities, normal range of motion, non-tender, muscle strength 5/5 x 4. Negative Homans signs bilaterally on lower extremity. Distal pulses full symmetrical, no clubbing, cyanosis , edema. Neurological: Speech is clear, alert, and oriented x 4. No motor or sensory deficit, deep tendon reflexes normal, cerebellar intact. Cranial nerves II-XII intact. Psych: Alert and or appropriate, normal affect. Vascular: Good distal pulses, which are equal x4; capillary refill less than 2 seconds. Lymphatic, no lymphadenopathy. 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 Tachyarrhythmia chronic in exacerbation Acute respiratory failure secondary to hypoxia COPD in exacerbation Anemia hemoglobin 9.9 Chronic kidney disease Hypoalbuminemia History of polysubstance abuse, and alcohol use disorder sober now Hepatic steatosis Plan IV antibiotics, steroids keep patient well hydrated euvolemic Additional lab work pending Lasix IV 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
--- NOTE | 2025-03-23 15:13 | ELECTROCARDIOGRAPH REPORT ---
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
[2025-03-23 15:57] LABS: D-DIMER 1.48 MG/L FEU (0-0.50)
[2025-03-23] MEDS: methylPREDNISolone sod succ/PF 40mg inj. IV SCH (17:15)
[2025-03-23] MEDS: K and/or MAG REPLACEMENT MC SCH (20:00)
[2025-03-23] MEDS: docusate sod 100mg capsule PO SCH (20:00)
[2025-03-23] MEDS: heparin, porcine 5000 units/ml vial SQ SCH (20:42)
[2025-03-23] MEDS ORDERED: temazepam 15mg capsule PO PRN (21:00)
[2025-03-24 02:00] VITALS: BP 113/85; PULSE 112; RESP 22; TEMP 98; O2SAT 93
[2025-03-24 06:28] LABS: BASOPHILS # (AUTO) 0.1 X10'3 (0-0.2); BASOPHILS % (AUTO) 0.9 % (0-1); EOSINOPHILS % (AUTO) 0 % (0-6); HEMATOCRIT 31.9 % (42.0-52.0); HEMOGLOBIN 10.2 g/dl (14.0-17.9); LYMPHOCYTES # (AUTO) 0.6 X10'3 (1.1-4.8); LYMPHOCYTES % (AUTO) 7.8 % (21-51); MEAN CORPUSCULAR HEMOGLOBIN 24.2 PG (27.0-31.0); MEAN CORPUSCULAR VOLUME 75.7 FL (78-98); MEAN PLATELET VOLUME 8.1 FL (7.4-10.4); MONOCYTES # (AUTO) 0.3 X10'3 (0-0.9); MONOCYTES % (AUTO) 4.6 % (2-12); NEUTROPHILS # (AUTO) 6.2 X10'3 (1.8-7.7); NEUTROPHILS % (AUTO) 86.7 % (42-75); PLATELET COUNT 233 X10'3 (140-440); RED BLOOD COUNT 4.21 X10'6 (4.70-6.10); RED CELL DISTRIBUTION WIDTH 19.1 % (11.5-14.5); WHITE BLOOD COUNT 7.2 X10'3 (4.5-11.0)
[2025-03-24 06:55] LABS: ALANINE AMINOTRANSFERASE 151 U/L (12-78); ALBUMIN 3.1 G/DL (3.4-5.0); ALBUMIN/GLOBULIN RATIO 0.9 (1.1-1.5); ALKALINE PHOSPHATASE 132 IU/L (46-116); ANION GAP 14 (8-16); ASPARTATE AMINO TRANSFERASE 112 U/L (10-37); BILIRUBIN,TOTAL 1.2 MG/DL (0.1-1.0); BLOOD UREA NITROGEN 52 MG/DL (7-18); BUN/CREATININE RATIO 29.5 (10.0-20.0); CALCIUM 8.9 MG/DL (8.5-10.1); CHLORIDE 100 MMOL/L (99-107); CHOL/HDL RATIO 2.5 (0.00-4.99); CHOLESTEROL 98 MG/DL (0-200); CREATININE 1.76 MG/DL (0.60-1.10); GLUCOSE 183 MG/DL (70-104); HDL CHOLESTEROL 39 MG/DL (35-60); LDL CHOLESTEROL 52 MG/DL (50-100); MAGNESIUM 2.3 MG/DL (1.5-2.4); POTASSIUM 4.5 MMOL/L (3.5-5.1); SODIUM 137 MMOL/L (135-145); TOTAL CARBON DIOXIDE 23.5 MMOL/L (24-32); TOTAL PROTEIN 6.7 G/DL (6.4-8.2); TRIGLYCERIDES 53 MG/DL (20-135); eCRCL 33 ML/MIN; eGFR 39 ML/MIN
[2025-03-24 07:00] VITALS: BP 117/88; PULSE 57; RESP 14; TEMP 98.2; O2SAT 95
[2025-03-24 07:22] LABS: ANISOCYTOSIS 2+; MICROCYTOSIS 1+; PLATELET ESTIMATE NORMAL
[2025-03-24 07:24] LABS: ACANTHOCYTES FEW; BURR CELLS FEW; ELLIPTOCYTES 1+
[2025-03-24 07:25] LABS: POLYCHROMASIA FEW
[2025-03-24] MEDS: furosemide 20 MG/2 ML vial IV SCH (08:15)
[2025-03-24] MEDS: CefTRIAXone/D5W-Rocephin 1gm 50 ML IV SCH (08:19)
[2025-03-24] MEDS: azithromycin/NS 500mg/250ml 250 ML IV SCH (08:20)
[2025-03-24] MEDS: pantoprazole 40mg Tablet.DR PO SCH (08:47)
[2025-03-24 10:50] VITALS: PULSE 113; RESP 20; O2SAT 92
[2025-03-24 11:00] VITALS: BP 103/68; PULSE 109; RESP 25; TEMP 98.1; O2SAT 94
[2025-03-24 15:00] VITALS: BP 100/66; PULSE 108; RESP 22; TEMP 97.2; O2SAT 97
--- NOTE | 2025-03-24 17:59 | PROGRESS NOTE ---
Daily Progress Note Providers to CC ~ feels better today, but appetite better sleep Central Line/PICC still needed: No Dobbs-Non Protocol Dobbs Indications Met/Not Met: F/C Indications Not Met Antibiotic Timeout Antibiotic Ordered?: Yes MRSA Education MRSA Education Provided to pt: Yes Subjective As above Objective Vital Signs Date Time Temp Pulse Resp B/P (MAP) Pulse Ox O2 Delivery O2 Flow Rate FiO2 03/24/25 15:00 97.2 108 22 100/66 (77) 97 Room Air 03/24/25 10:50 0 21 Vital signs, stable ,afebrile. Pulse Oximetry reflects adequate oxygenation. General: well developed, well nourished. Awake , alert, and oriented x4, resting comfortably in the bed, in no acute distress . Skin: Warm, dry, no pallor, no rash or petechiae. HEENT: Atraumatic, normocephalic, EOMI, anicteric sclera B; pink conjunctiva; PERRLA, normal oropharynx, moist oral and nasal mucosa. Tympanic membrane , nose , throat clear. Neck: Trachea midline. Supple, full range of motion, no JVD, bruit , hepatojugular reflex , lymphadenopathy or masses, or other lesions Cardiac: Regular rhythm, regular rate no murmurs, rubs, or gallops. Normal S1 and S2, no S3 noticed. PMI is normal. Respiratory: Equal breath sounds bilaterally, no tachypnea; lungs clear to auscultation bilaterally, no wheezing ,rub or rales, or crackles. Chest wall is symmetric and without deformity. No signs of trauma. Chest wall is nontender. No signs of respiratory distress. Resonance is normal upon percussion bilaterally. Gastrointestinal: Abdomen symmetric, non-distended, soft, non-tender, normal bowel sounds x4 quadrant, normoactive, no hepatosplenomegaly , no masses , no bruit, no flank pain bilaterally. No voluntary guarding, rebound, or rigidity. No tenderness to percussion. No pulsatile masses. Equal femoral pulses. No Mcneil's sign or McBurney point tenderness. Back; no CVA tenderness bilaterally, no deformities. Neck and back are without deformity as well. No tenderness noted on palpation of the spinous processes. Spinous processes are midline. Cervical, thoracic, and lumbar paraspinal muscles are not tender and are without spasm. : normal external genitalia, without lesions, swelling, masses or tenderness. Musculoskeletal: Extremities, normal range of motion, non-tender, muscle strength 5/5 x 4. Negative Homans signs bilaterally on lower extremity. Distal pulses full symmetrical, no clubbing, cyanosis , edema. Neurological: Speech is clear, alert, and oriented x 4. No motor or sensory deficit, deep tendon reflexes normal, cerebellar intact. Cranial nerves II-XII intact. Psych: Alert and or appropriate, normal affect. Vascular: Good distal pulses, which are equal x4; capillary refill less than 2 seconds. Lymphatic, no lymphadenopathy. 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 Tachyarrhythmia chronic in exacerbation Acute respiratory failure secondary to hypoxia COPD in exacerbation Anemia hemoglobin 9.9 Chronic kidney disease Hypoalbuminemia History of polysubstance abuse, and alcohol use disorder sober now Hepatic steatosis Plan IV antibiotics, steroids keep patient well hydrated euvolemic Additional lab work pending Lasix IV 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
[2025-03-24 20:00] VITALS: RESP 20; O2SAT 100
[2025-03-25] VITALS (16 sets, daily range): BP systolic 94–118; BP diastolic 67–88; PULSE 58–119; RESP 17–23; TEMP 97.1–98.7; O2SAT 92–100
[2025-03-25 06:48] LABS: ALANINE AMINOTRANSFERASE 270 U/L (12-78); ALBUMIN 2.9 G/DL (3.4-5.0); ALBUMIN/GLOBULIN RATIO 0.9 (1.1-1.5); ALKALINE PHOSPHATASE 130 IU/L (46-116); ANION GAP 15 (8-16); ASPARTATE AMINO TRANSFERASE 241 U/L (10-37); BLOOD UREA NITROGEN 69 MG/DL (7-18); BUN/CREATININE RATIO 38.8 (10.0-20.0); CALCIUM 8.7 MG/DL (8.5-10.1); CHLORIDE 99 MMOL/L (99-107); CREATININE 1.78 MG/DL (0.60-1.10); GLUCOSE 174 MG/DL (70-104); MAGNESIUM 2.3 MG/DL (1.5-2.4); POTASSIUM 4.8 MMOL/L (3.5-5.1); SODIUM 136 MMOL/L (135-145); TOTAL CARBON DIOXIDE 21.8 MMOL/L (24-32); TOTAL PROTEIN 6.1 G/DL (6.4-8.2); eCRCL 33 ML/MIN; eGFR 38 ML/MIN
[2025-03-25 06:58] LABS: BASOPHILS % (AUTO) 0 % (0-1); EOSINOPHILS % (AUTO) 0 % (0-6); HEMOGLOBIN 9.7 g/dl (14.0-17.9); LYMPHOCYTES # (AUTO) 0.4 X10'3 (1.1-4.8); LYMPHOCYTES % (AUTO) 3.9 % (21-51); MEAN CORPUSCULAR HEMOGLOBIN 23.9 PG (27.0-31.0); MEAN CORPUSCULAR HGB CONC 31.2 g/dL (33.0-36.5); MEAN CORPUSCULAR VOLUME 76.7 FL (78-98); MEAN PLATELET VOLUME 8.3 FL (7.4-10.4); MONOCYTES # (AUTO) 0.5 X10'3 (0-0.9); MONOCYTES % (AUTO) 5.6 % (2-12); NEUTROPHILS # (AUTO) 8.5 X10'3 (1.8-7.7); NEUTROPHILS % (AUTO) 90.5 % (42-75); PLATELET COUNT 197 X10'3 (140-440); RED BLOOD COUNT 4.04 X10'6 (4.70-6.10); RED CELL DISTRIBUTION WIDTH 19.3 % (11.5-14.5); WHITE BLOOD COUNT 9.4 X10'3 (4.5-11.0)
[2025-03-25] MEDS ORDERED: diazepam inj 5 MG/ML inj. IV PRN (13:30)
--- NOTE | 2025-03-25 19:25 | PROGRESS NOTE ---
Daily Progress Note Providers to CC ~ had an episode of shortness of Breath today Central Line/PICC still needed: No Dobbs-Non Protocol Dobbs Indications Met/Not Met: F/C Indications Not Met Antibiotic Timeout Antibiotic Ordered?: Yes MRSA Education MRSA Education Provided to pt: Yes Subjective As above Objective Vital Signs Date Time Temp Pulse Resp B/P (MAP) Pulse Ox O2 Delivery O2 Flow Rate FiO2 03/25/25 15:00 98.1 109 21 118/75 (89) 98 Nasal Cannula 1.0 03/25/25 09:36 28 Vital signs, stable ,afebrile. Pulse Oximetry reflects adequate oxygenation on 2 L oxygen nasal cannula General: well developed, well nourished. Awake , alert, and oriented x4, resting comfortably in the bed, in no acute distress . Skin: Warm, dry, no pallor, no rash or petechiae. HEENT: Atraumatic, normocephalic, EOMI, anicteric sclera B; pink conjunctiva; PERRLA, normal oropharynx, moist oral and nasal mucosa. Tympanic membrane , nose , throat clear. Neck: Trachea midline. Supple, full range of motion, no JVD, bruit , hepatojugular reflex , lymphadenopathy or masses, or other lesions Cardiac: Regular rhythm, regular rate no murmurs, rubs, or gallops. Normal S1 and S2, no S3 noticed. PMI is normal. Respiratory: Equal breath sounds bilaterally, no tachypnea; lungs clear to auscultation bilaterally, no wheezing ,rub or rales, or crackles. Chest wall is symmetric and without deformity. No signs of trauma. Chest wall is nontender. No signs of respiratory distress. Resonance is normal upon percussion bilaterally. Gastrointestinal: Abdomen symmetric, non-distended, soft, non-tender, normal bowel sounds x4 quadrant, normoactive, no hepatosplenomegaly , no masses , no bruit, no flank pain bilaterally. No voluntary guarding, rebound, or rigidity. No tenderness to percussion. No pulsatile masses. Equal femoral pulses. No Mcneil's sign or McBurney point tenderness. Back; no CVA tenderness bilaterally, no deformities. Neck and back are without deformity as well. No tenderness noted on palpation of the spinous processes. Spinous processes are midline. Cervical, thoracic, and lumbar paraspinal muscles are not tender and are without spasm. : normal external genitalia, without lesions, swelling, masses or tenderness. Musculoskeletal: Extremities, normal range of motion, non-tender, muscle strength 5/5 x 4. Negative Homans signs bilaterally on lower extremity. Distal pulses full symmetrical, no clubbing, cyanosis , edema. Neurological: Speech is clear, alert, and oriented x 4. No motor or sensory deficit, deep tendon reflexes normal, cerebellar intact. Cranial nerves II-XII intact. Psych: Alert and or appropriate, normal affect. Vascular: Good distal pulses, which are equal x4; capillary refill less than 2 seconds. Lymphatic, no lymphadenopathy. 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 Tachyarrhythmia chronic in exacerbation Acute respiratory failure secondary to hypoxia COPD in exacerbation Anemia hemoglobin 9.9 Chronic kidney disease Hypoalbuminemia History of polysubstance abuse, and alcohol use disorder sober now Hepatic steatosis Plan IV antibiotics, steroids keep patient well hydrated euvolemic Additional lab work pending Lasix IV Patient has no tomographic tech PT evaluation and treatment Patient it is on GD MT treatment regimen Reconciled home medications DVT gastropathy prophylaxis addressed Patient is DNR Anticipate discharge in the morning Sepsis Screening Reassessment Date: March 25, 2025 Date of Service: March 25, 2025 Billing Provider: KOLBY WATERS MD Common Visit Codes: [id number] INP/OBS CARE(HIGH) KOLBY WATERS MD March 25, 2025 19:25
[2025-03-25] MEDS: HYDROcodone/acetaminophen 5mg/325mg tablet PO ONE (21:18)
[2025-03-26] VITALS (7 sets, daily range): BP systolic 96–108; BP diastolic 71–76; PULSE 93–104; RESP 18–26; TEMP 96.8–98.3; O2SAT 92–99
[2025-03-26] MEDS: diazepam inj 5 MG/ML inj. IV PRN (00:13)
[2025-03-26 06:39] LABS: BASOPHILS % (AUTO) 0.2 % (0-1); EOSINOPHILS % (AUTO) 0 % (0-6); HEMATOCRIT 32.1 % (42.0-52.0); HEMOGLOBIN 10.2 g/dl (14.0-17.9); LYMPHOCYTES # (AUTO) 0.2 X10'3 (1.1-4.8); LYMPHOCYTES % (AUTO) 2.4 % (21-51); MEAN CORPUSCULAR HEMOGLOBIN 24.3 PG (27.0-31.0); MEAN CORPUSCULAR HGB CONC 31.7 g/dL (33.0-36.5); MEAN CORPUSCULAR VOLUME 76.5 FL (78-98); MONOCYTES # (AUTO) 0.4 X10'3 (0-0.9); MONOCYTES % (AUTO) 4.2 % (2-12); NEUTROPHILS # (AUTO) 8.5 X10'3 (1.8-7.7); NEUTROPHILS % (AUTO) 93.2 % (42-75); PLATELET COUNT 185 X10'3 (140-440); RED CELL DISTRIBUTION WIDTH 19.6 % (11.5-14.5); WHITE BLOOD COUNT 9.2 X10'3 (4.5-11.0)
[2025-03-26 07:05] LABS: ALANINE AMINOTRANSFERASE 406 U/L (12-78); ALBUMIN 3.1 G/DL (3.4-5.0); ALBUMIN/GLOBULIN RATIO 0.9 (1.1-1.5); ALKALINE PHOSPHATASE 154 IU/L (46-116); ANION GAP 15 (8-16); ASPARTATE AMINO TRANSFERASE 298 U/L (10-37); BILIRUBIN,TOTAL 1.2 MG/DL (0.1-1.0); BLOOD UREA NITROGEN 83 MG/DL (7-18); BUN/CREATININE RATIO 41.7 (10.0-20.0); CALCIUM 8.8 MG/DL (8.5-10.1); CHLORIDE 100 MMOL/L (99-107); CREATININE 1.99 MG/DL (0.60-1.10); GLUCOSE 166 MG/DL (70-104); MAGNESIUM 2.3 MG/DL (1.5-2.4); POTASSIUM 4.8 MMOL/L (3.5-5.1); SODIUM 136 MMOL/L (135-145); TOTAL CARBON DIOXIDE 21.3 MMOL/L (24-32); TOTAL PROTEIN 6.4 G/DL (6.4-8.2); eCRCL 29 ML/MIN; eGFR 34 ML/MIN
[2025-03-26] MEDS ORDERED: furosemide 20 MG/2 ML vial IV SCH (08:00)
[2025-03-26] MEDS: HYDROcodone/acetaminophen 5mg/325mg tablet PO PRN (08:21)
[2025-03-26] MEDS: furosemide 40mg/4ml inj IV SCH ×2 (09:49→16:59)
[2025-03-26] MEDS: methylPREDNISolone sod succ 125mg/2ml vial IV SCH (09:49)
--- NOTE | 2025-03-26 12:09 | RADIOLOGY REPORT ---
CLINICAL INFORMATION: Pulmonary embolism. Shortness of breath. Elevated D-dimer. TECHNIQUE: 40 mCi of aerosolized Tc99m DTPA was used for the ventilation portion of the exam. Nursing Education Consultant ior ventilation imaging was obtained. 5 mCi of technetium 99m MAA was used for the perfusion portion of the exam. Imaging was obtained in multiple planes of projection. COMPARISON: Chest radiograph dated 03/23/[address] chest dated 03/23/2025. FINDINGS: Perfusion imaging shows no mismatched segmental or subsegmental segmental defects. Ventilation imaging shows no defects. There is normal washout. IMPRESSION: Normal exam. No evidence of pulmonary embolism.
[2025-03-26] MEDS: DOBUTamine-DoBUTrex 500mg/D5W 250 ML IV SCH (12:40)
--- NOTE | 2025-03-26 12:42 | PROGRESS NOTE ---
Daily Progress Note Providers to CC ~ Antibiotic Timeout Antibiotic Ordered?: Yes Subjective No acute events overnight. Patient examined at bedside. No new complaints, not in acute distress. Patient denies chest pain, sob, palpitations, abdominal pain, n/v/d. Labs notable for uptrending creatinine, persistently elevated pBNP>30,000, elevated lactic acid. Started on dobutamine drip and Lasix dose adjusted. Consulted on-call refrigeration brazer/solderer Dr. Romano. Objective Vital Signs Date Time Temp Pulse Resp B/P (MAP) Pulse Ox O2 Delivery O2 Flow Rate FiO2 03/26/25 08:32 104 18 92 Nasal Cannula* 1 24 03/26/25 07:00 97.6 106/75 (85) Result Diagram: 03/26/25 0556 03/26/25 0556 Physical Exam General: Generalized weakness, fatigue, A&Ox1, NAD HEENT: Normocephalic, PERRLA Neck: Supple, trachea midline, no JVD Chest: Clear to auscultation bilaterally Cardiovascular: RRR GI: Soft and nontender Extremities: No cyanosis/clubbing/or edema LIBRARY SERVICES COORDINATOR: No focal deficits Musculoskeletal: No paraspinal muscle tenderness, no muscle spasm Skin: Warm and intact Coagulation Studies Laboratory Tests Test 03/23/25 07:32 03/23/25 15:35 Prothrombin Time 13.0 SECONDS (9.0-12.0) H INR International Normalized Ratio 1.3 INR Activated Partial Thromboplast Time 27 SECONDS (22-32) Coagulation Comments D-Dimer 1.48 MG/L FEU (0-0.50) H D-Dimer Comment Problem\Assessment\Plan # Acute decompensated systolic heart failure, LVEF 10% # Methamphetamine induced cardiomyopathy # Acute hypoxic respiratory failure 2/2 CHF # Prerenal JUAN on CKD III 2/2 CHF # Acute COPD exacerbation # Normocytic anemia # Hypoalbuminemia # History of polysubstance abuse # Hx alcohol use disorder, sober now # Hepatic steatosis # s/p AICD (Dr. Jones) -03/26: Lactic acid 3.5, Cr uptrending, BUN/Cr 41.7, LVEF 10% -GDMT including diuretics as tolerated, start dobutamine drip, Lasix increased; consulted refrigeration brazer/solderer Dr. Romano -follow repeat lactic acid, pBNP DVT/VTE Prophylaxis: heparin Code Status: DNR Date of Service: March 26, 2025 Billing Provider: LEO AN Common Visit Codes: [id number] INP/OBS CARE(HIGH) LEO AN March 26, 2025 12:42
[2025-03-26] MEDS: lisinopril 2.5mg tablet PO ONE (13:29)
[2025-03-26] MEDS: EMPAGLIFLOZIN 10 MG TABLET PO ONE (13:29)
--- NOTE | 2025-03-26 13:33 | VASCULAR REPORT ---
EXAM: VASC VL VENOUS Clinical History: Shortness of breath. Elevated D-dimer. Comparison: None Technique: Duplex Doppler evaluation of the deep venous systems of both lower extremities from the co mmon femoral veins to the popliteal veins including color Doppler and spectral/pulsed waveform analys is was performed. Findings: RIGHT SIDE: The common femoral vein demonstrates appropriate compressibility and waveform variability . There is compressibility/patency of the great saphenous vein at the proximal thigh . The femoral vein demonstrates appropriate compressibility and waveform variability . The deep femoral vein demonstrates appropriate compressibility and waveform variability . The popliteal vein demonstrates appropriate compressibility and waveform variability . There is color flow at the tibioperoneal trunk and in the posterior tibial vein. LEFT SIDE: The common femoral vein demonstrates appropriate compressibility and waveform variability . There is compressibility/patency of the great saphenous vein at the proximal thigh . The femoral vein demonstrates appropriate compressibility and waveform variability . The deep femoral vein demonstrates appropriate compressibility and waveform variability . The popliteal vein demonstrates appropriate compressibility and waveform variability . There is color flow at the tibioperoneal trunk and in the posterior tibial vein. Impression: 1. No right or left femoropopliteal venous thrombosis.
[2025-03-26] MEDS: carVEDilol 3.125mg tablet PO SCH (19:41)
[2025-03-27] VITALS (10 sets, daily range): BP systolic 85–109; BP diastolic 64–83; PULSE 88–99; RESP 11–31; TEMP 96.8–97.3; O2SAT 90–99
[2025-03-27 01:13] LABS: SODIUM,URINE RANDOM 57 MEQ/L; TOTAL PROTEIN,URINE RANDOM < 6.0 MG/DL
[2025-03-27 06:14] LABS: BASOPHILS # (AUTO) 0.1 X10'3 (0-0.2); BASOPHILS % (AUTO) 1.2 % (0-1); EOSINOPHILS % (AUTO) 0 % (0-6); HEMATOCRIT 27.5 % (42.0-52.0); HEMOGLOBIN 8.8 g/dl (14.0-17.9); LYMPHOCYTES # (AUTO) 0.2 X10'3 (1.1-4.8); LYMPHOCYTES % (AUTO) 2.4 % (21-51); MEAN CORPUSCULAR HEMOGLOBIN 24.2 PG (27.0-31.0); MEAN CORPUSCULAR HGB CONC 32.2 g/dL (33.0-36.5); MEAN CORPUSCULAR VOLUME 75.2 FL (78-98); MEAN PLATELET VOLUME 8.8 FL (7.4-10.4); MONOCYTES # (AUTO) 0.3 X10'3 (0-0.9); MONOCYTES % (AUTO) 4.1 % (2-12); NEUTROPHILS # (AUTO) 5.8 X10'3 (1.8-7.7); NEUTROPHILS % (AUTO) 92.3 % (42-75); PLATELET COUNT 137 X10'3 (140-440); RED BLOOD COUNT 3.66 X10'6 (4.70-6.10); RED CELL DISTRIBUTION WIDTH 19.4 % (11.5-14.5); WHITE BLOOD COUNT 6.3 X10'3 (4.5-11.0)
[2025-03-27 07:03] LABS: ALANINE AMINOTRANSFERASE 352 U/L (12-78); ALBUMIN 2.7 G/DL (3.4-5.0); ALBUMIN/GLOBULIN RATIO 0.9 (1.1-1.5); ALKALINE PHOSPHATASE 136 IU/L (46-116); ANION GAP 10 (8-16); ASPARTATE AMINO TRANSFERASE 153 U/L (10-37); BILIRUBIN,TOTAL 0.9 MG/DL (0.1-1.0); BLOOD UREA NITROGEN 86 MG/DL (7-18); BUN/CREATININE RATIO 43.7 (10.0-20.0); CALCIUM 8.1 MG/DL (8.5-10.1); CHLORIDE 99 MMOL/L (99-107); CREATININE 1.97 MG/DL (0.60-1.10); GLUCOSE 174 MG/DL (70-104); POTASSIUM 4.3 MMOL/L (3.5-5.1); SODIUM 137 MMOL/L (135-145); TOTAL CARBON DIOXIDE 27.6 MMOL/L (24-32); TOTAL PROTEIN 5.7 G/DL (6.4-8.2); eCRCL 30 ML/MIN; eGFR 34 ML/MIN
[2025-03-27 07:14] LABS: PRO BRAIN NATRIURETIC PEPTIDE > 30000 PG/ML (0-125)
[2025-03-27] MEDS: lisinopril 2.5mg tablet PO SCH (08:00)
[2025-03-27] MEDS: EMPAGLIFLOZIN 10 MG TABLET PO SCH (08:22)
[2025-03-27] MEDS: CefTRIAXone/D5W-Rocephin 1gm 50 ML IV SCH (08:25)
[2025-03-27] MEDS: methylPREDNISolone sod succ 125mg/2ml vial IV SCH (08:25)
[2025-03-27] MEDS: furosemide 40mg/4ml inj IV SCH (09:53)
[2025-03-27 11:27] LABS: ANISOCYTOSIS 2+; MICROCYTOSIS 1+; PLATELET ESTIMATE DECREASED
[2025-03-27 11:28] LABS: BURR CELLS 1+; ELLIPTOCYTES FEW
[2025-03-27 11:30] LABS: HYPOCHROMASIA 1+
--- NOTE | 2025-03-27 13:11 | DISCHARGE SUMMARY ---
Discharge Summary Providers to CC ~ Discharge Summary Admission Diagnosis: Acute HFrEF, JUAN on CKD Hospital Course DATE OF ADMISSION: 03/23/25 DATE OF DISCHARGE: 03/27/25 Discharge Diagnosis\Comment: Acute decompensated systolic heart failure, LVEF 10% Methamphetamine induced cardiomyopathy Acute hypoxic respiratory failure 2/2 CHF Prerenal JUAN on CKD III 2/2 CHF Afib w/ RVR Acute COPD exacerbation Normocytic anemia Hypoalbuminemia History of polysubstance abuse Hx alcohol use disorder, sober now Hepatic steatosis s/p AICD (Dr. Jones) Operations\Procedures: None Consultants: Migratory Farm Hand Dr. Romano, JOHNATHAN Complications: None Condition on DC: Stable for transfer Discharge Summary: Mor Deutsch is a 64-year-old male with a past medical history of methamphetamine abuse, systolic heart failure, s/p AICD, COPD, [place] who presented with chief complaint of progressively worsening shortness of breath x 2 weeks. Diagnostic findings were notable for elevated NT-pBNP>30,000, elevated lactic acid at 4.1mmol/L, renal insufficiency, hypoxia requiring supplemental oxygen. Patient was treated with GDMT including diuretic, dobutamine, luminal oxygen, empirical antibiotics, steroid, bronchodilators. Case was consulted with cardi ologist Dr. Romano who recommended continuation of medical therapy with dobutamine drip. Patient developed afib w/ RVR which spontaneously resolved. Patient did not experience further complications throughout the entire hospital stay. Patient was seen and examined on the day of discharge. On day of discharge, vss labs notable for normalized lactic acid, persistent but slightly improving renal function on diuretics. Patient is to be discharged to LTAC on dobutamine drip for continued management. Physical Exam General: Generalized weakness, fatigue, A&Ox1, NAD HEENT: Normocephalic, PERRLA Neck: Supple, trachea midline, no JVD Chest: Clear to auscultation bilaterally Cardiovascular: IRIR GI: Soft and nontender Extremities: No cyanosis/clubbing/or edema OPERATING ROOM ORDERLY: No focal deficits Musculoskeletal: No paraspinal muscle tenderness, no muscle spasm Skin: Warm and intact *Problems/Diagnosis: (1) Methamphetamine use Status: Chronic (2) Methamphetamine abuse Status: Chronic (3) CHF exacerbation Status: Acute (4) COPD exacerbation Status: Acute Total Time Spent on D/C: > 30 Minutes Date of Service: March 27, 2025 Billing Provider: LEO AN Common Visit Codes: [id number] DISCH DAY >30min LEO AN March 27, 2025 13:10
== END 2025-03-27 15:30 | DRG 291 ==
LOC: ER 02:46 → ED HOLD 08:18 → PCU 3S 20:00
PROVIDERS: ADMIT Family Medicine; ATTEND Family Medicine
PROC: CB121ZZ Planar Nuclear Medicine Imaging of Lungs and Bronchi using Technetium 99m (Tc-99m) (ICD-10-PCS; principal; 2025-03-26)
DX: I50.23 Acute on chronic systolic (congestive) heart failure (principal); J96.01 Acute respiratory failure with hypoxia; N17.9 Acute kidney failure, unspecified; J44.1 Chronic obstructive pulmonary disease with (acute) exacerbation; I42.7 Cardiomyopathy due to drug and external agent; Z66 Do not resuscitate; I27.20 Pulmonary hypertension, unspecified; K76.0 Fatty (change of) liver, not elsewhere classified; N18.30 Chronic kidney disease, stage 3 unspecified; I48.91 Unspecified atrial fibrillation; I25.10 Atherosclerotic heart disease of native coronary artery without angina pectoris; E78.5 Hyperlipidemia, unspecified; F19.10 Other psychoactive substance abuse, uncomplicated; E88.09 Other disorders of plasma-protein metabolism, not elsewhere classified; D64.9 Anemia, unspecified; Z88.0 Allergy status to penicillin; Z88.5 Allergy status to narcotic agent; Z79.01 Long term (current) use of anticoagulants; Z79.899 Other long term (current) drug therapy; Z95.810 Presence of automatic (implantable) cardiac defibrillator; Z87.891 Personal history of nicotine dependence; I25.2 Old myocardial infarction
CPT/HCPCS: 36415; 71045; 71250; 78582; 80048; 80053; 80061; 80305; 81003; 82570; 83036; 83605; 83735; 83880; 83930; 84100; 84133; 84156; 84300; 84484; 84540; 85008; 85025; 85379; 85610; 85730; 87040; 87081; 93005; 93970; 94640; 94760; 96365; 96375; 97161; 97530; 99285; A4615; A9539; A9540; G0378; J0456; J0696; J1250; J1644; J1938; J1940; J2919; J3360; J7030; J7040; J7512

== ENCOUNTER 2025-04-21 15:05 | Inpatient (IN) | payer MEDICARE, MEDICAID ==
[~2025-04-21] VITALS: Ht 160 cm; Wt 50.4 kg
[~2025-04-21 15:05] MED LIST changes: -PRED5TAB PO
[2025-04-21] MEDS ORDERED: normal saline 500ml IV soln 500 ML IV ONE (15:55)
--- NOTE | 2025-04-21 15:58 | Physician Documentation ---
History of Present Illness ~ Chief Complaint: Anxiety Stated Complaint: ANXIETY Time Seen by MD: 15:51 HPI This is a 64-year-old male who was brought to the emergency department per ambulance from [place] [facility], reportedly due to anxiety. Was given a breathing tx prior to transport here.He had a recent admission here just last month for congestive heart failure status post placement of AICD. Most recent echocardiogram from February of this year showed an ejection fraction of 10%. He was discharged from this facility on a dobutamine drip per the advice of Cardiology. History meth use, COPD, previous CT. Per medication list, appears to currently be on a prednisone taper. He receives heparin injections 5000 units daily via subcutaneous injections. Receives zoloft 25 mg daily but does not appear to have anything prn for anxiety ordered. Presents with POLST indicating DNR/selective treatment status. Medication Reconciliation Allergies: Coded Allergies: Penicillins (Verified Allergy, Unknown, PATIENT CANNOT REMEMBER, IT WAS LONG AGO., 03/23/25) TOLERATE ROCEPHIN 07/2024 AND ANCEF 07/2021 codeine (Verified Allergy, Unknown, 03/23/25) PT TOLERATE NORCO 01/2018, HYDROMORPHONE 02/2015, AND MORPHINE 02/2025 Scheduled Atorvastatin Calcium (Atorvastatin Calcium), 1 TAB PO DAILY, (Reported) Budesonide/Formoterol Fumarate (Symbicort 80-4.5 Mcg Inhaler), 2 PUFFS INH Q12H Carvedilol (Carvedilol), 6.25 MG PO BID Clopidogrel Bisulfate (Plavix), 75 MG PO DAILY Empagliflozin (Jardiance), 1 TAB PO DAILY Furosemide (Furosemide), 1 TAB PO DAILY Lisinopril (Lisinopril), 1 TAB PO DAILY Pantoprazole Sodium (PROTONIX tablet), 1 TAB PO DAILY Spironolactone (Aldactone), 25 MG PO DAILY@0830 Scheduled PRN Albuterol Sulfate Nebs* (Proventil Nebs*), 2.5 MG IH Q4H PRN for SOB or wheezing, (Reported) Cyclobenzaprine* (Cyclobenzaprine*), 10 MG PO Q12H PRN for muscle spasms Past Medical History Past Medical History: Coronary Artery Disease, Myocardial Infarction, COPD Past Surgical History: noncontributory Lives In: Home Review of Systems ROS As stated above in the HPI, otherwise all systems are reviewed and negative. Physical Exam Vital Signs: Heart Rate: 68, Respiratory Rate: 22, BP: 114/73, Pulse Oximetry: 96, Weight: 50.400 Oxygen Flow Rate: 2.0 Physical Exam General: Alert, chronically ill appearing. HEENT: PERRL, EOMI, no injection, moist mucous membranes. Neck: Full range of motion. Respiratory: Lungs diminished, scattered rhonchi. Mild distress with mild tachypnea. Chest: No accessory muscle use. Cardiovascular: Regular rate and rhythm, no murmurs. Tachycardic. Gastrointestinal: Soft, nontender, nondistended. Bowels sounds present. Extremities: Normal range of motion, no deformity. Neurologic: Oriented x4. Psychiatric: Normal mood and affect. Skin: Normal color but diaphoretic. No edema, no ecchymosis. Progress Progress Note 1537: Dr. Alfonso, hospitalist, here and agrees to admit patient. Results/Orders Results/Orders Orders - ADAMA LOCK SURVEY COMPILER Culture Blood (04/21/25 15:50) Chest,Single View (04/21/25 15:50) * Iv Access / Saline Lock * (04/21/25 15:51) Page Hospitalist (04/21/25 ) Completed Orders - ADAMA LOCK SURVEY COMPILER Electrocardiogram (04/21/25 15:50) Cbc/Diff (04/21/25 15:50) MG (04/21/25 15:50) Chest,Single View (04/21/25 15:50) Procalcitonin (04/21/25 15:50) BMP (04/21/25 15:50) Lacticsepsis (04/21/25 15:50) PBNP (04/21/25 15:58) Troponin (Single) (04/21/25 15:58) Furosemide 20mg Inj (Lasix Inj) (04/21/25 17:00) Lorazepam Inj (Ativan Inj) (04/21/25 17:00) Ua W/Microscopic, Cult If Ind (04/21/25 16:52) Medications Received in ER Medications (Trade) Dose Ordered Sig/Dot Route PRN Reason Start Time Stop Time Status Last Admin Dose Admin (Lasix inj) 20 mg ONCE ONCE IV 04/21/25 17:00 04/21/25 17:01 DC 04/21/25 17:11 20 MG (Ativan inj) 0.5 mg ONCE ONCE IV 04/21/25 17:00 04/21/25 17:01 DC 04/21/25 17:08 0.5 MG Vital Signs 04/21/25 04/21/25 15:10 16:55 Pulse 68 121 Resp 22 23 B/P (MAP) 114/73 124/94 (104) Pulse Ox 96 96 O2 Flow Rate 2.0 2.0 Laboratory Tests Test 04/21/25 16:02 04/21/25 16:52 White Blood Count 10.9 Red Blood Count 4.09 L Hemoglobin 10.0 L Hematocrit 31.3 L Mean Corpuscular Volume 76.6 L Mean Corpuscular Hemoglobin 24.5 L Mean Corpuscular Hemoglobin Concent 31.9 L Red Cell Distribution Width 22.2 H Platelet Count 310 Mean Platelet Volume 7.7 Neutrophils (%) (Auto) 93.1 H Lymphocytes (%) (Auto) 2.6 L Monocytes (%) (Auto) 3.8 Eosinophils (%) (Auto) 0.3 Basophils (%) (Auto) 0.2 Neutrophils # (Auto) 10.1 H Lymphocytes # (Auto) 0.3 L Monocytes # (Auto) 0.4 Eosinophils # (Auto) 0.0 Basophils # (Auto) 0.0 CBC Comment Platelet Estimate Normal Red Blood Cell Morphology Perf Polychromasia 1+ Hypochromasia 1+ Basophilic Stippling Anisocytosis 3+ Microcytosis 1+ Target Cells Few Tear Drop Cells Few Elliptocytes 1+ Schistocytes Few Sodium Level 141 Potassium Level 4.2 Chloride Level 105 Carbon Dioxide Level 26.9 Anion Gap 9 Blood Urea Nitrogen 41 H Creatinine 0.96 Estimated GFR/1.73 m2 78 BUN/Creatinine Ratio 42.7 H Glucose Level 185 H Lactic Acid Level 2.0 Calcium Level 8.7 Magnesium Level 1.9 Troponin I High Sensitivity 115 *H Pro-B-Type Natriuretic Peptide 53800 H Albumin 3.0 L Procalcitonin < 0.05 Chemistry Comments Urine Specimen Description Urinal Urine Color Straw Urine Clarity Clear Urine pH 6.0 Urine Specific [place] <=1.005 Urine Protein Negative Urine Glucose (UA) >=1000 H Urine Ketones Negative Urine Occult Blood Negative Urine Nitrite Negative Urine Bilirubin Negative Urine Urobilinogen 0.2 Urine Leukocyte Esterase Negative Urine RBC None seen Urine WBC None seen Urine Squamous Epithelial Cells Few Urine Bacteria None seen Urine Mucus None seen Urine Culture Indicated Not ind Volume Urine Centrifuged 10 ml Urine Comment EKG/XRAY/CT/US/VASC/MRI EKG : Additional Comment 1615 EKG interpreted to show Ventricular-paced rhythm. QTC 550 ms. Chest X-Ray : Additional Comments [facility] [address] , [place], [facility] [id number] DIAGNOSTIC RADIOLOGY Patient: HANH MARSH Medical Record: [id number] [facility] : 1960, Age: 64 Sex: Male Location: ER Patient Status: [facility] ER Service Date/Time: 04/21/251549 Ordering Physician: ADAMA LOCK SURVEY COMPILER Exam: CHEST,SINGLE VIEW CHEST RADIOGRAPH Indication: SEPSIS Technique: Single frontal view of the chest was obtained COMPARISON: DI CHEST,SINGLE VIEW on DOS: 03/23/25, DI CHEST,SINGLE VIEW on DOS: 03/09/25, DI CHEST,SINGLE VIEW on DOS: 07/23/24, DI CHEST,SINGLE VIEW on DOS: 07/22/24 FINDINGS: Lines and Tubes: Left pacemaker/ AICD with leads projecting over the right atrium, right ventricle, and coronary sinus. Lungs: Basilar predominant patchy airspace opacities. Pulmonary vasculature is indistinct. Pleura: Blunting of the costophrenic sulci. No measurable pneumothorax Cardiomediastinal contours: Enlarged cardiac silhouette. Bones: Mild osseous degenerative changes. IMPRESSION: Cardiomegaly with mild interstitial pulmonary edema. Small bilateral pleural effusions with adjacent airspace disease. Electronically Signed by:ERIC CRABTREE MD Date & Time: 04/21/251621 Dictated by: ERIC CRABTREE MD Dictation date and time: 06/08/25 1622 Primary Care Provider: NO PRIMARY CARE PROVIDER cc: ADAMA LOCK NP ~ Medical Decision Making Differential Dx:Considerations: Include: anxiety, asthma, bronchitis, cardiogenic shock, CHF, COPD, dysrhythmia, hypertension, accelerated, hypertension, essential, hypertension, malignant, hyperventilation, hyponatremia, myocardial infarction, panic attack, pneumonia, pneumonitis, pneumothorax, PSVT, pulmonary embolism, respiratory distress, respiratory failure, sinusitis, upper resp. infection Additional Infomation This is a 64-year-old male who was brought to the emergency department today per EMS from [facility] due to concerns for anxiety. On evaluation, the patient was found to be in mild respiratory distress. He did appear anxious, but reported that this anxiety was due to inability to breathe. Chest x-ray indicated that he was experiencing fluid volume overload, add did his markedly elevated BNP over . The patient was medicated with Ativan 0.5 mg IV push x1 and furosemide 20 mg IV push x1. His rhythm was noted to be V paced in the 120s. Pacemaker interrogated, [employer] contacted. Patient considered appropriate for admission due to evidence of congestive heart failure with a known ejection fraction of 10%, exacerbation of same. Hospitalist contacted to evaluate him for admission. Departure Time of Disposition: 17:37 Disposition: 09 ADMITTED INPATIENT Admitted to Inpatient Unit: yes, to hospitalist Impression: Primary Impression: Acute on chronic systolic (congestive) heart failure Referrals: NO PRIMARY CARE PROVIDER (PCP) Signature Scribe Signature: no scribe Attestation: The note accurately reflects work and decisions made by me.Adama Rubio NP 04/21/25 16:00 ADAMA LOCK NP Apr 21, 2025 15:58
--- NOTE | 2025-04-21 16:16 | ELECTROCARDIOGRAPH REPORT ---
[facility] Test Date: 2025-04-21 Test Time: 16:15:29 Pat Name: HANH MARSH Department: [facility]-ER Patient ID: [id number] Room: Gender: M Email Campaign Specialist: : 1960 Requested By: ADAMA LOCK Order Number: [id number] Reading MD: Measurements Intervals [place] Rate: 120 P: 0 [place]: 43 QRS: -74 QRSD: 179 T: 121 QT: 389 QTc: 550 Interpretive Statements Ventricular-paced rhythm No further analysis attempted due to paced rhythm Please click the below link to view image of tracing.
--- NOTE | 2025-04-21 16:25 | RADIOLOGY REPORT ---
CHEST RADIOGRAPH Indication: SEPSIS Technique: Single frontal view of the chest was obtained COMPARISON: DI CHEST,SINGLE VIEW on DOS: 03/23/25, DI CHEST,SINGLE VIEW on DOS: 03/09/25, DI CHEST,SING LE VIEW on DOS: 07/23/24, DI CHEST,SINGLE VIEW on DOS: 07/22/24 FINDINGS: Lines and Tubes: Left pacemaker/ AICD with leads projecting over the right atrium, right ventricle, a nd coronary sinus. Lungs: Basilar predominant patchy airspace opacities. Pulmonary vasculature is indistinct. Pleura: Blunting of the costophrenic sulci. No measurable pneumothorax Cardiomediastinal contours: Enlarged cardiac silhouette. Bones: Mild osseous degenerative changes. IMPRESSION: Cardiomegaly with mild interstitial pulmonary edema. Small bilateral pleural effusions with adjacent airspace disease.
[2025-04-21 16:29] LABS: BASOPHILS % (AUTO) 0.2 % (0-1); EOSINOPHILS % (AUTO) 0.3 % (0-6); HEMATOCRIT 31.3 % (42.0-52.0); LYMPHOCYTES # (AUTO) 0.3 X10'3 (1.1-4.8); LYMPHOCYTES % (AUTO) 2.6 % (21-51); MEAN CORPUSCULAR HEMOGLOBIN 24.5 PG (27.0-31.0); MEAN CORPUSCULAR HGB CONC 31.9 g/dL (33.0-36.5); MEAN CORPUSCULAR VOLUME 76.6 FL (78-98); MEAN PLATELET VOLUME 7.7 FL (7.4-10.4); MONOCYTES # (AUTO) 0.4 X10'3 (0-0.9); MONOCYTES % (AUTO) 3.8 % (2-12); NEUTROPHILS # (AUTO) 10.1 X10'3 (1.8-7.7); NEUTROPHILS % (AUTO) 93.1 % (42-75); PLATELET COUNT 310 X10'3 (140-440); RED BLOOD COUNT 4.09 X10'6 (4.70-6.10); RED CELL DISTRIBUTION WIDTH 22.2 % (11.5-14.5); WHITE BLOOD COUNT 10.9 X10'3 (4.5-11.0)
[2025-04-21 16:42] LABS: CHLORIDE 105 MMOL/L (99-107); POTASSIUM 4.2 MMOL/L (3.5-5.1); SODIUM 141 MMOL/L (135-145)
[2025-04-21 17:02] LABS: ANION GAP 9 (8-16); BLOOD UREA NITROGEN 41 MG/DL (7-18); BUN/CREATININE RATIO 42.7 (10.0-20.0); CALCIUM 8.7 MG/DL (8.5-10.1); CREATININE 0.96 MG/DL (0.60-1.10); GLUCOSE 185 MG/DL (70-104); MAGNESIUM 1.9 MG/DL (1.5-2.4); PRO BRAIN NATRIURETIC PEPTIDE 23652 PG/ML (0-125); TOTAL CARBON DIOXIDE 26.9 MMOL/L (24-32); eCRCL 54 ML/MIN; eGFR 78 ML/MIN
[2025-04-21] MEDS: LORazepam 2 mg/ml vial IV ONE (17:08)
[2025-04-21] MEDS: furosemide 20 MG/2 ML vial IV ONE (17:11)
[2025-04-21 17:12] LABS: BILIRUBIN,URINE NEGATIVE (Neg); CLARITY,URINE CLEAR (Clear); COLOR,URINE STRAW (Yellow); GLUCOSE, URINE >=1000 mg/dl (Neg); KETONES,URINE NEGATIVE (Neg); LEUKOCYTE ESTERASE ,URINE NEGATIVE (Neg); NITRITES, URINE NEGATIVE (Neg); OCCULT BLOOD,URINE NEGATIVE (Neg); PROTEIN,URINE NEGATIVE (Neg); UROBILINOGEN,URINE 0.2 E.U/dL (0.2-1.0)
[2025-04-21 17:13] LABS: UA COLLECTION TYPE URINAL
[2025-04-21 17:15] LABS: ANISOCYTOSIS 3+; HYPOCHROMASIA 1+; MICROCYTOSIS 1+; PLATELET ESTIMATE NORMAL; POLYCHROMASIA 1+
[2025-04-21 17:17] LABS: ELLIPTOCYTES 1+; SCHISTOCYTES FEW; TARGET CELLS FEW; TEAR DROP CELLS FEW
[2025-04-21 17:20] LABS: BACTERIA,URINE NONE SEEN /HPF (Neg); MUCUS STRANDS NONE SEEN /LPF (Neg); RBC,URINE NONE SEEN /HPF (0-2); SQUAMOUS EPITHELIAL CELL,UR FEW /LPF (FEW); WBC,URINE NONE SEEN /HPF (0-4)
--- NOTE | 2025-04-21 17:47 | HISTORY AND PHYSICAL ---
History & Physical Providers to CC ~ History of Present Illness Reason for Admit\Complaint: Increased work of breathing History of Present Illness 64-year-old male who is unable to provide me any history as he is quite altered mumbling few unintelligible words. Patient was brought to the emergency department per ambulance from [facility], for evaluation of increased work of breathing and anxiety. Patient was given a breathing tx prior to transport here.He had a recent admission here just last month for congestive heart failure status post placement of AICD. Most recent echocardiogram from February of this year showed an ejection fraction of 10%. He was discharged from this facility on a dobutamine drip per the advice of Cardiology. Presents with POLST indicating DNR/selective treatment status. When I examined the patient, he is in moderate respiratory distress with a respiratory rate of 25 and a heart rate of 123. He has been admitted for acute respiratory failure. Allergies: Coded Allergies: Penicillins (Verified Allergy, Unknown, PATIENT CANNOT REMEMBER, IT WAS LONG AGO., 03/23/25) TOLERATE ROCEPHIN 07/2024 AND ANCEF 07/2021 codeine (Verified Allergy, Unknown, 03/23/25) PT TOLERATE NORCO 01/2018, HYDROMORPHONE 02/2015, AND MORPHINE 02/2025 Home Medications Home Medications Active PROTONIX tablet (Pantoprazole Sodium) 40 Mg Tablet.dr 1 Tab PO DAILY 30 Days Symbicort 80-4.5 Mcg Inhaler (Budesonide/Formoterol Fumarate) 80 Mcg-4.5 Mcg/Actuation Hfa.aer.ad 2 Puffs INH Q12H 30 Days Lisinopril 2.5 Mg Tablet 1 Tab PO DAILY 30 Days Cyclobenzaprine* (Cyclobenzaprine HCl) 10 Mg Tablet 10 Mg PO Q12H PRN 5 Days Jardiance (Empagliflozin) 10 Mg Tablet 1 Tab PO DAILY 30 Days Plavix (Clopidogrel Bisulfate) 75 Mg Tablet 75 Mg PO DAILY 30 Days Do not stop medication unless instructed by prescriber. Carvedilol 6.25 Mg Tablet 6.25 Mg PO BID 30 Days Furosemide 20 Mg Tablet 1 Tab PO DAILY 30 Days Aldactone (Spironolactone) 25 Mg Tablet 25 Mg PO DAILY@0830 30 Days Reported Proventil Nebs* (Albuterol) 2.5 Mg/0.5 Ml Vial.neb 2.5 Mg IH Q4H PRN Atorvastatin Calcium 20 Mg Tablet 1 Tab PO DAILY Past Medical History Past Medical History CAD, CHF, COPD, hypertension, GERD, AFib, hyperlipidemia, Past Surgical History Surgical History Comment AICD placement Past Social History Social History Comment Unobtainable Health Maintenance Health Maintenance Unobtainable ROS ROS Unobtainable Exam Vitals: Vital Signs Date Time Temp Pulse Resp B/P (MAP) Pulse Ox O2 Delivery O2 Flow Rate FiO2 04/21/25 16:55 121 23 124/94 (104) 96 2.0 General: Cachectic looking male appears much older than his stated age. In moderate respiratory distress. HEENT: Normocephalic atraumatic pupils round reactive to light and accommodation, extraocular movements intact, sclera anicteric, conjunctiva pinkish, moist oral mucosa, no rash or ulcers. Neck: Supple, no JVD, trachea midline, no lymphadenopathy. Chest: Decreased breath sounds with occasional expiratory rhonchi. Noted to have a AICD in the left infraclavicular region Cardiovascular: Regular rate rhythm, no murmur gallop or rub. Abdomen: Soft nontender, no organomegaly. Extremities: No cyanosis clubbing or edema. Central Nervous System: Nonfocal grossly. Patient is seen moving all four extremities Musculoskeletal: No joint swelling or deformities Skin: Poor skin turgor. Diagnostic Data Last Recorded Lab Results: 04/21/25 1602 04/21/25 1602 Additional Plan 64 years old male sent over from [facility] for anxiety and increased work of breathing 1. Acute respiratory failure: Supplemental oxygen and BiPAP if necessary 2. Acute on chronic systolic congestive heart failure: Patient has a an AICD/pacemaker in place. Patient was recently discharged to [facility] on dobutamine drip as recommended by cytogenetic technician. Patient had received Lasix in the ER. Continue monitor I's and O's. Continue Coreg Lasix lisinopril and spironolactone if blood pressure tolerates. May need to be given meds IV because he is altered and confused. 3. Metabolic encephalopathy: Fall precautions and monitor 4. History of CAD: Patient is on Plavix which will be continued when he is able to take p.o. meds 5. GI prophylaxis: He is on Protonix as outpatient which will be switched to IV. 6. Hyperlipidemia continue atorvastatin once again when he is able to take p.o. 7. Tachycardia: Paced rhythm. Pacemaker has been interrogated 8. Probable pneumonia: Chest x-ray shows cardiomegaly with mild interstitial pulmonary edema, small bilateral pleural effusions with adjacent airspace disease. We will start him on empiric antibiotics 9. Code status: Patient presents with a POLST that direct DNR 10.Anemia Monitor H/H , Transfuse for Hb less than 7 11. Expected length of stay: 3-4 days. Date of Service: Apr 21, 2025 Billing Provider: SEGUNDO BEJARANO MD Common Visit Codes: [id number] INP/OBS CARE (HIGH) SEGUNDO BEJARANO MD Apr 21, 2025 17:47
[2025-04-21] MEDS ORDERED: magnesium sulf-water 4G/100mL 100 ML IV PRN (17:50)
[2025-04-21] MEDS ORDERED: HYDROcodone/acetaminophen 5mg/325mg tablet PO PRN (17:50)
[2025-04-21] MEDS ORDERED: potassium Cl 20 mEq SR tablet PO PRN (17:50)
[2025-04-21] MEDS ORDERED: acetaminophen 325mg tablet PO PRN (17:50)
[2025-04-21] MEDS ORDERED: magnesium sulf-water 2g/50mL 50 ML IV PRN (17:50)
[2025-04-21] MEDS ORDERED: magnesium Cl slow-release 64mg tablet PO PRN (17:50)
[2025-04-21] MEDS ORDERED: potassium Cl 40MEQ/1/2NS 520ml 520 ML IV PRN (17:50)
[2025-04-21] MEDS: metoprolol tartrate 1mg/ml inj IV ONE (17:58)
[2025-04-21] MEDS: LidoCAINE 2% Topical Jelly 11mL syringe (UROJET) TOP ONE (18:23)
[2025-04-21] MEDS: levoFLOXACIN-Levaquin 500mg/D5 100 ML IV SCH (20:31)
[2025-04-21] MEDS: K and/or MAG REPLACEMENT MC SCH (20:43)
[2025-04-21 21:30] VITALS: BP 105/79; PULSE 114; RESP 18; TEMP 97.6; O2SAT 95
[2025-04-21] MEDS: HYDROmorphone 1 mg/ml syringe IV PRN (23:44)
[2025-04-22] VITALS (7 sets, daily range): BP systolic 91–119; BP diastolic 71–88; PULSE 106–130; RESP 20–30; TEMP 97.1–98.6; O2SAT 90–100
[2025-04-22] MEDS: atorvastatin 20mg tablet PO SCH (11:16)
[2025-04-22] MEDS: carvedilol 6.25mg tablet PO ONE (11:17)
[2025-04-22 11:25] LABS: BASOPHILS # (AUTO) 0.2 X10'3 (0-0.2); BASOPHILS % (AUTO) 1.9 % (0-1); EOSINOPHILS # (AUTO) 0.1 X10'3 (0-0.9); EOSINOPHILS % (AUTO) 0.6 % (0-6); HEMATOCRIT 31.8 % (42.0-52.0); HEMOGLOBIN 10.1 g/dl (14.0-17.9); LYMPHOCYTES # (AUTO) 0.7 X10'3 (1.1-4.8); MEAN CORPUSCULAR HEMOGLOBIN 24.6 PG (27.0-31.0); MEAN CORPUSCULAR HGB CONC 31.9 g/dL (33.0-36.5); MEAN CORPUSCULAR VOLUME 77.2 FL (78-98); MEAN PLATELET VOLUME 7.9 FL (7.4-10.4); MONOCYTES % (AUTO) 9.3 % (2-12); NEUTROPHILS # (AUTO) 8.4 X10'3 (1.8-7.7); NEUTROPHILS % (AUTO) 81.2 % (42-75); PLATELET COUNT 306 X10'3 (140-440); RED BLOOD COUNT 4.12 X10'6 (4.70-6.10); RED CELL DISTRIBUTION WIDTH 21.8 % (11.5-14.5); WHITE BLOOD COUNT 10.4 X10'3 (4.5-11.0)
[2025-04-22 11:44] LABS: ALBUMIN 2.9 G/DL (3.4-5.0); ANION GAP 13 (8-16); BLOOD UREA NITROGEN 41 MG/DL (7-18); BUN/CREATININE RATIO 35.3 (10.0-20.0); CALCIUM 8.8 MG/DL (8.5-10.1); CHLORIDE 104 MMOL/L (99-107); CREATININE 1.16 MG/DL (0.60-1.10); GLUCOSE 149 MG/DL (70-104); POTASSIUM 4.5 MMOL/L (3.5-5.1); SODIUM 142 MMOL/L (135-145); TOTAL CARBON DIOXIDE 24.9 MMOL/L (24-32); eCRCL 45 ML/MIN; eGFR 63 ML/MIN
[2025-04-22] MEDS: morphine 2 MG/ML inj. syringe IV PRN (19:27)
--- NOTE | 2025-04-22 19:39 | PROGRESS NOTE ---
Daily Progress Note Providers to CC ~ Antibiotic Timeout Antibiotic Ordered?: Yes Subjective Patient was seen in his room in presence of nursing staff patient looked anxious and confused. Dobbs catheter in place he was tachycardic. When I evaluated the patient patient was not even using any oxygen Objective Vital Signs Date Time Temp Pulse Resp B/P (MAP) Pulse Ox O2 Delivery O2 Flow Rate FiO2 04/22/25 19:27 22 04/22/25 07:00 97.2 111 119/88 (98) 97 Room Air 04/21/25 22:00 2.0 Result Diagram: 04/22/25 1113 04/22/25 1113 General-patient not in any acute distress, confused , chronically ill-appearing HEENT-atraumatic normocephalic, neck supple without elevated JVD, no thyromegaly or carotid bruit. No lymphadenopathy bilaterally. Eyes-no icterus or pallor seen in eyes Chest-decreased lung sounds to auscultation bilaterally, poor air entry, breathing nonlabored no tachypnea, no wheezing Heart-S1-S2 normal, regular heart rate no murmur, pacemaker present over left side of the chest Abdomen bowel sounds positive on auscultation, soft nondistended nontender no guarding, no rigidity, Dobbs catheter in place Skin no active skin rash Neurology-grossly intact, nonfocal awake but confused Extremity- no pedal edema able to move all 4 extremities Psychiatry - patient is confused not agitated partially cooperated during physical examination Problem\Assessment\Plan 64 years old male sent over from [facility] for anxiety and increased work of breathing 1. Acute respiratory failure: Supplemental oxygen and BiPAP if necessary 2. Acute on chronic systolic congestive heart failure: Patient has a an AICD/pacemaker in place. Patient was recently discharged to [facility] on dobutamine drip as recommended by biology adjunct instructor. Patient had received Lasix in the ER. Continue monitor I's and O's. Continue Coreg Lasix lisinopril and spironolactone if blood pressure tolerates. . 3. Metabolic encephalopathy: Fall precautions and monitor 4. History of CAD: Patient is on Plavix which will be continued when he is able to take p.o. meds 5. GI prophylaxis: He is on Protonix as outpatient which will be switched to IV. 6. Hyperlipidemia continue atorvastatin once again when he is able to take p.o. 7. Tachycardia: Paced rhythm. Pacemaker has been interrogated 8. Probable pneumonia: Chest x-ray shows cardiomegaly with mild interstitial pulmonary edema, small bilateral pleural effusions with adjacent airspace disease. on empiric antibiotics 9. Code status: Patient presents with a POLST that direct DNR 10.Anemia Monitor H/H , Transfuse for Hb less than 7 11. Expected length of stay: 3-4 days. Patient's current condition is guarded we will continue to follow patient in AM . Date of Service: Apr 22, 2025 Billing Provider: MONICA VERA MD Common Visit Codes: [id number] INP/OBS CARE(HIGH) MONICA VERA MD Apr 22, 2025 19:39
[2025-04-22] MEDS: carvedilol 6.25mg tablet PO SCH (19:40)
[2025-04-22] MEDS: Budesonide/Formoterol Fumarate (Symbicort 80-4.5 Mcg Inhaler) IH SCH (19:44)
[2025-04-22] MEDS: nicotine 21mg patch - 24 hr TD ONE (22:36)
[2025-04-22] MEDS: LORazepam 1 MG tablet PO ONE (22:39)
[2025-04-22] MEDS: carVEDilol 3.125mg tablet PO ONE (22:43)
[2025-04-23] VITALS (10 sets, daily range): BP systolic 80–102; BP diastolic 55–77; PULSE 82–124; RESP 13–28; TEMP 97.4–98.8; O2SAT 98–100
--- NOTE | 2025-04-23 00:46 | RADIOLOGY REPORT ---
EXAM: DI CHEST,SINGLE VIEW CLINICAL HISTORY: MONITOR CHANGES TECHNIQUE: Single AP view of the chest WID: COMPARISON: DI CHEST,SINGLE VIEW on DOS: 04/21/25 FINDINGS: Lines and tubes: There is a left-sided triple lead AICD. Chest: Cardiomegaly with mild prominence of the central pulmonary vasculature. Improvement in mixed airspace opacities in the lung bases. No significant pleural effusion. No pneumo thorax. The osseous structures are grossly intact. IMPRESSION: 1. Cardiomegaly with mild prominence of the central pulmonary vasculature. 2. Improvement in bibasilar mixed airspace opacities since prior.
--- NOTE | 2025-04-23 06:11 | ELECTROCARDIOGRAPH REPORT ---
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 Vaughn Galarza Measurements Intervals [place] Rate: 109 P: 35 CT: 80 QRS: 269 QRSD: 186 T: 122 QT: 411 QTc: 554 Interpretive Statements Ventricular-paced rhythm No further analysis attempted due to paced rhythm Electronically Signed On 04-23-2025 8:16:[address] Vaughn Galarza Please click the below link to view image of tracing.
[2025-04-23 06:58] LABS: BASOPHILS % (AUTO) 0.4 % (0-1); EOSINOPHILS # (AUTO) 0.1 X10'3 (0-0.9); EOSINOPHILS % (AUTO) 0.6 % (0-6); HEMATOCRIT 28.6 % (42.0-52.0); HEMOGLOBIN 9.2 g/dl (14.0-17.9); LYMPHOCYTES # (AUTO) 0.6 X10'3 (1.1-4.8); LYMPHOCYTES % (AUTO) 6.2 % (21-51); MEAN CORPUSCULAR HEMOGLOBIN 24.4 PG (27.0-31.0); MEAN CORPUSCULAR VOLUME 76.4 FL (78-98); MEAN PLATELET VOLUME 8.1 FL (7.4-10.4); MONOCYTES # (AUTO) 0.8 X10'3 (0-0.9); MONOCYTES % (AUTO) 7.8 % (2-12); NEUTROPHILS # (AUTO) 8.6 X10'3 (1.8-7.7); PLATELET COUNT 248 X10'3 (140-440); RED BLOOD COUNT 3.75 X10'6 (4.70-6.10); RED CELL DISTRIBUTION WIDTH 21.6 % (11.5-14.5); WHITE BLOOD COUNT 10.1 X10'3 (4.5-11.0)
[2025-04-23 07:28] LABS: ALBUMIN 2.7 G/DL (3.4-5.0); ANION GAP 11 (8-16); BLOOD UREA NITROGEN 50 MG/DL (7-18); CALCIUM 8.7 MG/DL (8.5-10.1); CHLORIDE 98 MMOL/L (99-107); CREATININE 1.25 MG/DL (0.60-1.10); GLUCOSE 119 MG/DL (70-104); MAGNESIUM 1.9 MG/DL (1.5-2.4); POTASSIUM 4.3 MMOL/L (3.5-5.1); SODIUM 133 MMOL/L (135-145); TOTAL CARBON DIOXIDE 24.2 MMOL/L (24-32); eCRCL 41 ML/MIN; eGFR 58 ML/MIN
[2025-04-23 07:59] LABS: ANISOCYTOSIS 3+; MICROCYTOSIS 1+; PLATELET ESTIMATE NORMAL
[2025-04-23 08:00] LABS: TEAR DROP CELLS FEW
[2025-04-23] MEDS: albuterol 2.5 MG/3 ML nebule NEB PRN (08:37)
[2025-04-23] MEDS: lisinopril 2.5mg tablet PO SCH (09:46)
[2025-04-23] MEDS: clopidogrel 75mg tablet PO SCH (09:47)
[2025-04-23] MEDS: EMPAGLIFLOZIN 10 MG TABLET PO SCH (09:47)
[2025-04-23] MEDS: nicotine 21mg patch - 24 hr TD SCH (09:50)
[2025-04-23] MEDS ORDERED: morphine 2 MG/ML inj. syringe IV PRN (10:45)
[2025-04-23] MEDS ORDERED: morphine 4 MG/ML inj SYRINge IV PRN (17:41)
--- NOTE | 2025-04-23 19:34 | PROGRESS NOTE ---
Daily Progress Note Providers to CC ~ Antibiotic Timeout Antibiotic Ordered?: Yes Subjective Patient was seen in his room he still looks drowsy but cooperative during physical examination. Discontinued Dilaudid and he is on morphine which we will give very cautiously only if needed Objective Vital Signs Date Time Temp Pulse Resp B/P (MAP) Pulse Ox O2 Delivery O2 Flow Rate FiO2 04/23/25 15:00 98.2 85 18 84/58 (67) 99 Room Air 4.0 102/68 (79) 04/23/25 08:37 44 Result Diagram: 04/23/2560304/23/25603 General-patient not in any acute distress, confused , chronically ill-appearing HEENT-atraumatic normocephalic, neck supple without elevated JVD, no thyromegaly or carotid bruit. No lymphadenopathy bilaterally. Eyes-no icterus or pallor seen in eyes Chest-decreased lung sounds to auscultation bilaterally, poor air entry, breathing nonlabored no tachypnea, no wheezing Heart-S1-S2 normal, regular heart rate no murmur, pacemaker present over left side of the chest Abdomen bowel sounds positive on auscultation, soft nondistended nontender no guarding, no rigidity, Dobbs catheter in place Skin no active skin rash Neurology-grossly intact, nonfocal awake but confused Extremity- no pedal edema able to move all 4 extremities Psychiatry - patient is confused not agitated partially cooperated during physical examination Problem\Assessment\Plan 64 years old male sent over from [facility] for anxiety and increased work of breathing 1. Acute respiratory failure: Supplemental oxygen and BiPAP if necessary 2. Acute on chronic systolic congestive heart failure: Patient has a an AICD/pacemaker in place. Patient was recently discharged to [facility] on dobutamine drip as recommended by business management manager. Patient had received Lasix in the ER. Continue monitor I's and O's. Continue Coreg Lasix lisinopril and spironolactone if blood pressure tolerates. . 3. Metabolic encephalopathy: Fall precautions and monitor 4. History of CAD: Patient is on Plavix which will be continued when he is able to take p.o. meds 5. GI prophylaxis: He is on Protonix as outpatient which will be switched to IV. 6. Hyperlipidemia continue atorvastatin once again when he is able to take p.o. 7. Tachycardia: resolved , Paced rhythm. Pacemaker has been interrogated 8. Probable pneumonia: Chest x-ray shows cardiomegaly with mild interstitial pulmonary edema, small bilateral pleural effusions with adjacent airspace disease. on empiric antibiotics 9. Code status: Patient presents with a POLST that direct DNR 10.Anemia Monitor H/H , Transfuse for Hb less than 7 Patient's current condition is guarded we will continue to follow patient in AM . Date of Service: Apr 23, 2025 Billing Provider: MONICA VERA MD Common Visit Codes: [id number] INP/OBS CARE(HIGH) MONICA VERA MD Apr 23, 2025 19:34
[2025-04-23] MEDS ORDERED: HYDROCODONE PO PRN (21:18)
[2025-04-23] MEDS ORDERED: ACETAMINOPHEN PO PRN (21:18)
[2025-04-23] MEDS ORDERED: HYDROcodone/acetaminophen 7.5MG/325MG per 15ml UD CUP PO PRN ×3 (21:19→21:36)
[2025-04-23] MEDS ORDERED: HYDROcodone/acetaminophen 5mg/325mg tablet PO PRN (21:50)
[2025-04-23] MEDS: HYDROcodone/acetaminophen 5mg/325mg tablet PO PRN (22:03)
[2025-04-24] VITALS (19 sets, daily range): BP systolic 72–98; BP diastolic 48–60; PULSE 78–96; RESP 16–24; TEMP 97.4–98.3; O2SAT 98–100
[2025-04-24] MEDS: normal saline 500ml IV soln 500 ML IV ONE ×3 (05:26→12:02)
[2025-04-24 06:43] LABS: BASOPHILS % (AUTO) 0.3 % (0-1); EOSINOPHILS # (AUTO) 0.1 X10'3 (0-0.9); EOSINOPHILS % (AUTO) 0.9 % (0-6); HEMATOCRIT 28.5 % (42.0-52.0); HEMOGLOBIN 9.2 g/dl (14.0-17.9); LYMPHOCYTES # (AUTO) 0.3 X10'3 (1.1-4.8); LYMPHOCYTES % (AUTO) 3.2 % (21-51); MEAN CORPUSCULAR HEMOGLOBIN 24.6 PG (27.0-31.0); MEAN CORPUSCULAR HGB CONC 32.2 g/dL (33.0-36.5); MEAN CORPUSCULAR VOLUME 76.4 FL (78-98); MEAN PLATELET VOLUME 7.9 FL (7.4-10.4); MONOCYTES # (AUTO) 0.7 X10'3 (0-0.9); MONOCYTES % (AUTO) 7.1 % (2-12); NEUTROPHILS # (AUTO) 8.9 X10'3 (1.8-7.7); NEUTROPHILS % (AUTO) 88.5 % (42-75); PLATELET COUNT 228 X10'3 (140-440); RED BLOOD COUNT 3.73 X10'6 (4.70-6.10); RED CELL DISTRIBUTION WIDTH 21.7 % (11.5-14.5)
[2025-04-24 07:03] LABS: ALBUMIN 2.2 G/DL (3.4-5.0); ANION GAP 8 (8-16); BLOOD UREA NITROGEN 35 MG/DL (7-18); CALCIUM 8.2 MG/DL (8.5-10.1); CHLORIDE 97 MMOL/L (99-107); CREATININE 0.92 MG/DL (0.60-1.10); GLUCOSE 77 MG/DL (70-104); MAGNESIUM 1.8 MG/DL (1.5-2.4); POTASSIUM 3.8 MMOL/L (3.5-5.1); SODIUM 132 MMOL/L (135-145); TOTAL CARBON DIOXIDE 27.3 MMOL/L (24-32); eCRCL 56 ML/MIN; eGFR 82 ML/MIN
[2025-04-24] MEDS: levoFLOXACIN-Levaquin 250mg/D5 50 ML IV SCH (08:50)
[2025-04-24] MEDS: ondansetron/PF 4mg/2ml inj IV PRN (08:51)
[2025-04-24] MEDS: albuterol 2.5 MG/3 ML nebule NEB SCH (11:51)
--- NOTE | 2025-04-24 14:06 | ELECTROCARDIOGRAPH REPORT ---
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 Vaughn Galarza Measurements Intervals [place] Rate: 93 P: 79 [place]: 163 QRS: -69 QRSD: 187 T: 114 QT: 445 QTc: 554 Interpretive Statements Ventricular-paced complexes No further analysis attempted due to paced rhythm Electronically Signed On 04-26-2025 8:17:[address] Vaughn Galarza Please click the below link to view image of tracing.
--- NOTE | 2025-04-24 19:57 | PROGRESS NOTE ---
Daily Progress Note Providers to CC ~ Antibiotic Timeout Antibiotic Ordered?: Yes Subjective Patient was seen in his room he is more awake as compared to yesterday. Stopped patient's Dilaudid. Manual blood pressure 86/ 60 , one normal saline bolus ordered. We will continue to monitor vitals. Objective Vital Signs Date Time Temp Pulse Resp B/P (MAP) Pulse Ox O2 Delivery O2 Flow Rate FiO2 04/24/25 16:53 92 24 Nasal Cannula 4.0 04/24/25 16:47 98 36 04/24/25 14:48 74/58 (63) 04/24/25 11:26 98.0 Result Diagram: 04/24/25 0556 04/24/25 0556 General-patient not in any acute distress, confused , chronically ill-appearing HEENT-atraumatic normocephalic, neck supple without elevated JVD, no thyromegaly or carotid bruit. No lymphadenopathy bilaterally. Eyes-no icterus or pallor seen in eyes Chest-decreased lung sounds to auscultation bilaterally, poor air entry, breathing nonlabored no tachypnea, no wheezing Heart-S1-S2 normal, regular heart rate no murmur, pacemaker present over left side of the chest Abdomen bowel sounds positive on auscultation, soft nondistended nontender no guarding, no rigidity, Dobbs catheter in place Skin no active skin rash Neurology-grossly intact, nonfocal awake but confused Extremity- no pedal edema able to move all 4 extremities Psychiatry - patient is confused not agitated partially cooperated during physical examination Problem\Assessment\Plan 64 years old male sent over from [facility] for anxiety and increased work of breathing 1. Acute respiratory failure: Supplemental oxygen and BiPAP if necessary 2. Acute on chronic systolic congestive heart failure: Patient has a an AICD/pacemaker in place. Patient was recently discharged to [facility] on dobutamine drip as recommended by voip network engineer. stopped Coreg Lasix lisinopril and spironolactone as patient is hypotensive. 3. Metabolic encephalopathy: Fall precautions and monitor 4. History of CAD: Patient is on Plavix which will be continued when he is able to take p.o. meds 5 borderline blood pressure-Manual blood pressure 86/ 60 , one normal saline bolus ordered. We will continue to monitor vitals. 6. Hyperlipidemia continue atorvastatin once again when he is able to take p.o. 7. Tachycardia: resolved , Paced rhythm. Pacemaker has been interrogated 8. Probable pneumonia: Chest x-ray shows cardiomegaly with mild interstitial pulmonary edema, small bilateral pleural effusions with adjacent airspace disease. on empiric antibiotics 9. Code status: Patient presents with a POLST that direct DNR 10.Anemia Monitor H/H , Transfuse for Hb less than 7 Patient's current condition is guarded, incoming hospitalist will continue to follow patient in AM . Date of Service: Apr 24, 2025 Billing Provider: MONICA VERA MD Common Visit Codes: [id number] INP/OBS CARE(HIGH) MONICA VERA MD Apr 24, 2025 19:57
[2025-04-24] MEDS ORDERED: carVEDilol 3.125mg tablet PO SCH (20:00)
[2025-04-25] VITALS (14 sets, daily range): BP systolic 90–94; BP diastolic 55–66; PULSE 60–106; RESP 18–28; TEMP 97.6–97.8; O2SAT 20–100
[2025-04-25 09:04] LABS: BASOPHILS % (AUTO) 0.2 % (0-1); EOSINOPHILS % (AUTO) 0.4 % (0-6); HEMOGLOBIN 9.1 g/dl (14.0-17.9); LYMPHOCYTES # (AUTO) 0.3 X10'3 (1.1-4.8); LYMPHOCYTES % (AUTO) 3.1 % (21-51); MEAN CORPUSCULAR HEMOGLOBIN 24.2 PG (27.0-31.0); MEAN CORPUSCULAR HGB CONC 31.3 g/dL (33.0-36.5); MEAN CORPUSCULAR VOLUME 77.3 FL (78-98); MEAN PLATELET VOLUME 7.6 FL (7.4-10.4); MONOCYTES # (AUTO) 1.1 X10'3 (0-0.9); MONOCYTES % (AUTO) 10.6 % (2-12); NEUTROPHILS # (AUTO) 9.1 X10'3 (1.8-7.7); NEUTROPHILS % (AUTO) 85.7 % (42-75); PLATELET COUNT 218 X10'3 (140-440); RED BLOOD COUNT 3.75 X10'6 (4.70-6.10); WHITE BLOOD COUNT 10.6 X10'3 (4.5-11.0)
[2025-04-25 09:22] LABS: ALBUMIN 2.1 G/DL (3.4-5.0); ANION GAP 11 (8-16); BLOOD UREA NITROGEN 23 MG/DL (7-18); BUN/CREATININE RATIO 31.1 (10.0-20.0); CALCIUM 8.2 MG/DL (8.5-10.1); CHLORIDE 98 MMOL/L (99-107); CREATININE 0.74 MG/DL (0.60-1.10); GLUCOSE 83 MG/DL (70-104); POTASSIUM 4.9 MMOL/L (3.5-5.1); SODIUM 134 MMOL/L (135-145); TOTAL CARBON DIOXIDE 25.2 MMOL/L (24-32); eCRCL 70 ML/MIN; eGFR > 90 ML/MIN
[2025-04-25] MEDS ORDERED: morphine oral 20mg/ml (conc. morphine) 1ml oral syringe PO PRN (14:50)
[2025-04-25] MEDS ORDERED: hyoscyamine 0.125mg TAB.SUBL SL PRN (14:50)
[2025-04-25] MEDS: LORazepam 1 MG tablet PO PRN (15:57)
[2025-04-25] MEDS: morphine 4 MG/ML inj SYRINge IV PRN (15:57)
[2025-04-25] MEDS: LORazepam 2 mg/ml vial IV PRN (20:11)
--- NOTE | 2025-04-25 21:06 | PROGRESS NOTE ---
Daily Progress Note Providers to CC ~ Antibiotic Timeout Antibiotic Ordered?: No Subjective The patient's blood pressure has been soft and the patient was asking for pain medication I discussed with the patient about his overall situation and the patient has a elected to go on to comfort care as he was aware that he has end- stage heart failure with an EF of 10% Objective Vital Signs Date Time Temp Pulse Resp B/P (MAP) Pulse Ox O2 Delivery O2 Flow Rate FiO2 04/25/25 16:43 104 26 Nasal Cannula 2.0 04/25/25 16:37 87 21 04/25/25 06:00 97.6 90/65 (73) Result Diagram: 04/25/25 0815 04/25/25 0815 Gen. No acute distress alert and oriented 4 Lungs clear to ascultation bilaterally, no wheezes rales or rhonchi appreciated Heart normal sinus rhythm no murmurs rubs or clicks noted Abdomen soft nontender bowel sounds are normoactive Lower extremities no clubbing cyanosis, nor edema appreciated bilaterally Problem\Assessment\Plan 64 years old male sent over from [facility] for anxiety and increased work of breathing 1. Acute respiratory failure: Supplemental oxygen and BiPAP if necessary 2. Acute on chronic systolic congestive heart failure: Patient has a an AICD/pacemaker in place. Patient was recently discharged to [facility] on dobutamine drip as recommended by electric shipyard operator. stopped Coreg Lasix lisinopril and spironolactone as patient is hypotensive. 3. Metabolic encephalopathy: Fall precautions and monitor 4. History of CAD: Patient is on Plavix which will be continued when he is able to take p.o. meds 5 borderline blood pressure-Manual blood pressure 86/ 60 , one normal saline bolus ordered. We will continue to monitor vitals. 6. Hyperlipidemia continue atorvastatin once again when he is able to take p.o. 7. Tachycardia: resolved , Paced rhythm. Pacemaker has been interrogated 8. Probable pneumonia: Chest x-ray shows cardiomegaly with mild interstitial pulmonary edema, small bilateral pleural effusions with adjacent airspace disease. on empiric antibiotics 9. Code status: Patient presents with a POLST that direct DNR 10.Anemia Monitor H/H , Transfuse for Hb less than 7 04/25/25 I will above treatments has been discontinued as the patient's code status has changed today to comfort care I spent a total of 20 minutes on reviewing various resuscitative measures/ ACP with the patient on 04/25/2025- the patient has the capacity to make this decision when I spoke with the and has a elected for comfort care/ hospice care- PRN Roxanol and PRN IV morphine as well as p.r.n. Levsin for excessive secretion or as are ordered all unnecessary medications were discontinued. Date of Service: Apr 25, 2025 Billing Provider: ARRON GONZALEZ DO Common Visit Codes: [id number] INP/OBS CARE(HIGH) Secondary Visit Codes: [id number] CARE PLAN 30 MINUTES ARRON GONZALEZ DO Apr 25, 2025 21:05
[2025-04-26 06:00] VITALS: BP 131/75; PULSE 60; RESP 18; TEMP 97.6; O2SAT 98
[2025-04-26 08:00] VITALS: RESP 24; O2SAT 92
[2025-04-26 13:30] VITALS: BP 101/65; PULSE 101; RESP 16; O2SAT 92
--- NOTE | 2025-04-26 23:14 | DISCHARGE SUMMARY ---
Discharge Summary Providers to CC ~ Discharge Summary Admission Diagnosis: acute respiratory failure Hospital Course DATE OF ADMISSION: 04/21/2025 DATE OF DISCHARGE: 04/26/2025 Discharge Diagnosis\\Comment: Acute respiratory failure secondary to acute on chronic systolic heart failure, metabolic encephalopathy, hypotension, hyperlipidemia, tachycardia, probable pneumonia, anemia Operations\\Procedures: None Consultants: None Complications: None Condition on DC: Stable for transfer Discharge Summary: The patient was admitted by Dr Kale Hay with the following HPI:"64-year-old male who is unable to provide me any history as he is quite altered mumbling few unintelligible words. Patient was brought to the emergency department per ambulance from [facility], for evaluation of increased work of breathing and anxiety. Patient was given a breathing tx prior to transport here.He had a recent admission here just last month for congestive heart failure status post placement of AICD. Most recent echocardiogram from February of this year showed an ejection fraction of 10%. He was discharged from this facility on a dobutamine drip per the advice of Cardiology. Presents with POLST indicating DNR/selective treatment status. When I examined the patient, he is in moderate respiratory distress with a respiratory rate of 25 and a heart rate of 123. He has been admitted for acute respiratory failure." The patient blood pressure started to downtrend the map around 60 two point with the patient required fluids on the in his heart failure medications were held- patient required oxygen in the entire hospitalization the patient was requesting pain medication on the however his blood pressure has been low and since we are unable to give the patient his heart failure medications with a prior EF of 10% I discussed comfort care with the patient on the and the patient decided to go on to comfort care The following day the patient was transferred back to [facility] on comfort care/hospice care. Gen. No acute distress somnolent Respiratory no dyspnea or distress Neuro no abnormal movements or twitches appreciated The patient was cleared to be discharged to [facility] on 04/26/2025 The patient was seen and evaluated on day of discharge. Time spent on discharge 20 minutes *Problems/Diagnosis: (1) Acute on chronic systolic (congestive) heart failure Status: Resolved Total Time Spent on D/C: Up to 30 Minutes Date of Service: Apr 26, 2025 Billing Provider: ARRON GONZALEZ DO Common Visit Codes: [id number] DISCH DAY <30MIN ARRON GONZALEZ DO Apr 26, 2025 23:14
== END 2025-04-26 16:15 | DRG 280 ==
LOC: ER 15:06 → PCU 3S 17:52 → SUR 3N 04-26 13:34
PROVIDERS: ADMIT Internal Medicine; ATTEND Internal Medicine
DX: I11.0 Hypertensive heart disease with heart failure (principal); G93.41 Metabolic encephalopathy; I21.A1 Myocardial infarction type 2; J96.00 Acute respiratory failure, unspecified whether with hypoxia or hypercapnia; J18.9 Pneumonia, unspecified organism; I50.23 Acute on chronic systolic (congestive) heart failure; J44.0 Chronic obstructive pulmonary disease with (acute) lower respiratory infection; Z66 Do not resuscitate; E78.5 Hyperlipidemia, unspecified; I48.91 Unspecified atrial fibrillation; D64.9 Anemia, unspecified; K21.9 Gastro-esophageal reflux disease without esophagitis; I25.10 Atherosclerotic heart disease of native coronary artery without angina pectoris; F41.9 Anxiety disorder, unspecified; Z88.0 Allergy status to penicillin; Z88.5 Allergy status to narcotic agent; Z95.810 Presence of automatic (implantable) cardiac defibrillator; Z51.5 Encounter for palliative care
CPT/HCPCS: 36415; 71045; 80048; 81001; 83605; 83735; 83880; 84145; 84484; 85008; 85025; 87040; 87081; 92508; 92616; 93005; 94640; 94760; 96374; 96375; 99285; A4314; A4615; A6258; G0378; J1171; J1938; J1956; J2060; J2270; J2405; J3490; J7030; J7040